=== PATIENT | female | born 1960 | race Caucasian/White ===

== ENCOUNTER 2016-06-03 18:44 | Emergency (ER) | payer MEDICARE, MEDICAID | END 2016-06-03 19:05 | disposition left against medical advice (07) | LOC: UCEAST 18:44 | DX: Z53.21 Procedure and treatment not carried out due to patient leaving prior to being seen by health care provider (principal); R09.89 Other specified symptoms and signs involving the circulatory and respiratory systems ==

== ENCOUNTER 2016-06-12 09:35 | Emergency (ER) | payer MEDICARE, MEDICAID ==
[2016-06-12 10:10] LABS: Hematocrit 49 % (35-47); Hemoglobin 16.6 g/dl (12.0-16.0); Mean Corpuscular HGB Conc 34 g/dl (31-36); Mean Corpuscular Hemoglobin 33 pg (27-31); Mean Corpuscular Volume 97 fL (80-97); Mean Platelet Volume 7 um3 (7.4-10.4); Red Blood Count 5.09 10^6/ul (4.0-5.4); Red Cell Distribution Width 13 % (10.5-15); White Blood Count 6.3 10^3/ul (3.5-10.8)
[2016-06-12 10:12] LABS: Urine Bilirubin Negative (Negative); Urine Glucose Negative (Negative); Urine Nitrite Negative (Negative)
--- NOTE | 2016-06-12 10:24 | RAD ---
INDICATION: Cough and sepsis. COMPARISON: Comparison is made with a prior study from November 30, 2015. TECHNIQUE: A portable view of the chest was obtained. FINDINGS: Cardiac and mediastinal contours appear to be within normal limits. The lungs are clear. No pleural effusion is seen. IMPRESSION: NO EVIDENCE FOR ACUTE DISEASE.
[2016-06-12 10:36] LABS: Albumin 3.7 g/dL (3.2-5.2); BUN/Creatinine Ratio 10.9 (8-20); Calcium 9.2 mg/dL (8.6-10.3); EGFR African American 81.2 (>60); EGFR Non-African American 63.1 (>60); Globulin 3.6 g/dL (2-4); Potassium 4.4 mmol/L (3.5-5.0); Total Bilirubin 0.5 mg/dL (0.2-1.0); Total Protein 7.3 g/dL (6.4-8.9)
[2016-06-12 11:02] LABS: Troponin I 0.01 ng/mL (<0.04)
[2016-06-12] MEDS ORDERED: NS 0.9% 1000 ML* 1,000 ML IV ONE (11:17)
[2016-06-12 12:14] LABS: C Reactive Protein 1.44 mg/L (< 5.00)
[2016-06-12 13:02] VITALS: BP 123/69
--- NOTE | 2016-06-12 14:33 | ED ---
Brad Ugadle Matthew, scribed for Bob Jaeger MD on 06/12/16 at 1013 . Complex/Multi-Sys Presentation - HPI Summary HPI Summary: A 55 y/o female presents to the ED after the patient's aid stated she was more difficulty to arouse than normal this morning. She has also been twitching more than baseline this morning. She recently finished a course of Abx yesterday, which she started on 06/05/15 for bronchitis. Per the aid, the patient had a subjective fever yesterday and her productive cough has worsened. PMHx: Dementia The patient is non-verbal. - History Of Current Complaint Chief Complaint: EDGeneral Time Seen by Provider: 06/12/16 09:43 Hx Obtained From: Family/Bottom Man - AID Hx From Patient Unobtainable Due To: Other - Non-Verbal Onset/Duration: Lasting Hours, Still Present Timing: Constant Severity Currently: Moderate Severity Initially: Moderate Location: Negative Associated Signs And Symptoms: Positive: Cough, Fever - subjective, Other - Increased Drowsiness and Twitching - Allergies/Home Medications Allergies/Adverse Reactions: Allergies Allergy/AdvReac Type Severity Reaction Status Date / Time No Known Allergies Allergy Verified 06/12/16 09:57 PMH/Surg Hx/FS Hx/Imm Hx Endocrine/Hematology History: Reports: Hx Thyroid Disease - hypo Neurological History: Reports: Other Neuro Impairments/Disorders - Down's Syndrome - Cancer History Hx Chemotherapy: No Hx Radiation Therapy: No - Immunization History Date of Tetanus Vaccine: 03/07/12 Date of Influenza Vaccine: 02/26/15 Infectious Disease History: No Infectious Disease History: Denies: Hx Clostridium Difficile, Hx Hepatitis, Hx Human Immunodeficiency Virus (HIV), Hx of Known/Suspected MRSA, Hx Shingles, Hx Tuberculosis, Hx Known/ Suspected VRE, Hx Known/Suspected VRSA, History Other Infectious Disease, Traveled Outside the [place] in Last 30 Days - Family History Known Family History: Negative: Cardiac Disease, Diabetes - Social History Alcohol Use: None Substance Use Type: Reports: None Smoking Status (MU): Never Smoked Tobacco Have You Smoked in the Last Year: No Review of Systems - ROS Summary Review of Systems Summary: A complete ROS is unable to be obtained, because the patient has dementia and is non-verbal. Positive: Fever - subjective Positive: Cough - productive Neurological: Other - Increased Drowsiness and Twitching All Other Systems Reviewed And Are Negative: No Physical Exam Triage Information Reviewed: Yes Vital Signs On Initial Exam: Initial Vitals Temp Pulse Resp BP Pulse Ox 97.7 F 73 16 121/72 98 06/12/16 09:37 06/12/16 09:37 06/12/16 09:37 06/12/16 09:37 06/12/16 09:37 Vital Signs Reviewed: Yes Appearance: Positive: Well-Appearing, Well-Nourished Skin: Positive: Warm, Skin Color Reflects Adequate Perfusion, Dry Head/Face: Positive: Normal Head/Face Inspection ENT: Positive: Other - Dry Mucous Membranes Neck: Positive: Supple, Nontender Respiratory/Lung Sounds: Positive: Breath Sounds Present, Other - Course upper airway sounds Cardiovascular: Positive: RRR Abdomen Description: Positive: Nontender, Soft Bowel Sounds: Positive: Present Neurological: Positive: Other - intermittent disorganized twitching Diagnostics - Vital Signs Vital Signs Temp Pulse Resp BP Pulse Ox 06/12/16 09:37 97.7 F 73 16 121/72 98 - Laboratory Lab Results: Lab Results 06/12/16 06/12/16 06/12/16 Range/Units 09:50 09:50 09:50 WBC 6.3 (3.5-10.8) 10^3/ul RBC 5.09 (4.0-5.4) 10^6/ul Hgb 16.6 H (12.0-16.0) g/dl Hct 49 H (35-47) % MCV 97 (80-97) fL MCH 33 H (27-31) pg MCHC 34 (31-36) g/dl RDW 13 (10.5-15) % Plt Count 355 (150-450) 10^3/ul MPV 7 L (7.4-10.4) um3 Neut % (Auto) 55.1 (38-83) % Lymph % (Auto) 34.4 (25-47) % Roosevelt % (Auto) 7.3 (1-9) % Eos % (Auto) 0.8 (0-6) % Baso % (Auto) 2.4 H (0-2) % Absolute Neuts (auto) 3.4 (1.5-7.7) 10^3/ul Absolute Lymphs (auto) 2.2 (1.0-4.8) 10^3/ul Absolute Monos (auto) 0.5 (0-0.8) 10^3/ul Absolute Eos (auto) 0.1 (0-0.6) 10^3/ul Absolute Basos (auto) 0.2 (0-0.2) 10^3/ul Absolute Nucleated RBC 0.01 10^3/ul Nucleated RBC % 0.1 INR (Anticoag Therapy) 0.86 L (0.89-1.11) APTT 28.8 (26.0-36.3) seconds Sodium (133-145) mmol/L Potassium (3.5-5.0) mmol/L Chloride (101-111) mmol/L Carbon Dioxide (22-32) mmol/L Anion Gap (2-11) mmol/L BUN (6-24) mg/dL Creatinine (0.51-0.95) mg/dL Est GFR ( Amer) (>60) Est GFR (Non-Af Amer) (>60) BUN/Creatinine Ratio (8-20) Glucose (70-100) mg/dL Lactic Acid (0.5-2.0) mmol/L Calcium (8.6-10.3) mg/dL Total Bilirubin (0.2-1.0) mg/dL AST (13-39) U/L ALT (7-52) U/L Alkaline Phosphatase (34-104) U/L Troponin I (<0.04) ng/mL C-Reactive Protein (< 5.00) mg/L Total Protein (6.4-8.9) g/dL Albumin (3.2-5.2) g/dL Globulin (2-4) g/dL Albumin/Globulin Ratio (1-3) Urine Color Yellow Urine Appearance Clear Urine pH 7.0 (5-9) Ur Specific [place] 1.009 L (1.010-1.030) Urine Protein Negative (Negative) Urine Ketones Negative (Negative) Urine Blood Negative (Negative) Urine Nitrate Negative (Negative) Urine Bilirubin Negative (Negative) Urine Urobilinogen Negative (Negative) Ur Leukocyte Esterase Negative (Negative) Urine Glucose Negative (Negative) 06/12/16 06/12/16 Range/Units 09:50 09:50 WBC (3.5-10.8) 10^3/ul RBC (4.0-5.4) 10^6/ul Hgb (12.0-16.0) g/dl Hct (35-47) % MCV (80-97) fL MCH (27-31) pg MCHC (31-36) g/dl RDW (10.5-15) % Plt Count (150-450) 10^3/ul MPV (7.4-10.4) um3 Neut % (Auto) (38-83) % Lymph % (Auto) (25-47) % Roosevelt % (Auto) (1-9) % Eos % (Auto) (0-6) % Baso % (Auto) (0-2) % Absolute Neuts (auto) (1.5-7.7) 10^3/ul Absolute Lymphs (auto) (1.0-4.8) 10^3/ul Absolute Monos (auto) (0-0.8) 10^3/ul Absolute Eos (auto) (0-0.6) 10^3/ul Absolute Basos (auto) (0-0.2) 10^3/ul Absolute Nucleated RBC 10^3/ul Nucleated RBC % INR (Anticoag Therapy) (0.89-1.11) APTT (26.0-36.3) seconds Sodium 135 (133-145) mmol/L Potassium 4.4 (3.5-5.0) mmol/L Chloride 99 L (101-111) mmol/L Carbon Dioxide 29 (22-32) mmol/L Anion Gap 7 (2-11) mmol/L BUN 10 (6-24) mg/dL Creatinine 0.92 (0.51-0.95) mg/dL Est GFR ( Amer) 81.2 (>60) Est GFR (Non-Af Amer) 63.1 (>60) BUN/Creatinine Ratio 10.9 (8-20) Glucose 108 H (70-100) mg/dL Lactic Acid 1.3 (0.5-2.0) mmol/L Calcium 9.2 (8.6-10.3) mg/dL Total Bilirubin 0.50 (0.2-1.0) mg/dL AST 23 (13-39) U/L ALT 19 (7-52) U/L Alkaline Phosphatase 123 H (34-104) U/L Troponin I 0.01 (<0.04) ng/mL C-Reactive Protein 1.44 (< 5.00) mg/L Total Protein 7.3 (6.4-8.9) g/dL Albumin 3.7 (3.2-5.2) g/dL Globulin 3.6 (2-4) g/dL Albumin/Globulin Ratio 1.0 (1-3) Urine Color Urine Appearance Urine pH (5-9) Ur Specific [place] (1.010-1.030) Urine Protein (Negative) Urine Ketones (Negative) Urine Blood (Negative) Urine Nitrate (Negative) Urine Bilirubin (Negative) Urine Urobilinogen (Negative) Ur Leukocyte Esterase (Negative) Urine Glucose (Negative) Result Diagrams: 06/12/16 09:50 06/12/16 09:50 Lab Statement: Any lab studies that have been ordered have been reviewed, and results considered in the medical decision making process. - Radiology CXR Xray Interpretation: No Acute Changes - IMPRESSION: NO EVIDENCE FOR ACUTE DISEASE. Radiology Interpretation Completed By: Radiologist Complex Multi-Symp Course/Dx Assessment/Plan: A 55 y/o female presents to the ED after the patient's aid stated she was more difficulty to arouse than normal this morning. She has also been twitching more than baseline this morning. She recently finished a course of Abx yesterday, which she started on 06/05/15 for bronchitis. Per the aid, the patient had a subjective fever yesterday and her productive cough has worsened. Labs were reviewed. CXR shows no evidence for acute disease. Her twitching improved with IV fluids and I think that she just got behind in her fluids from being sick the last several days. The patient will be discharged home and follow -up with her PCP. - Diagnoses Provider Diagnoses: Dehydration Discharge - Discharge Plan Condition: Stable Disposition: HOME Patient Education Materials: Dehydration (ED) Referrals: Richard Sharif MD [Primary Care Provider] - 2 Days Additional Instructions: Please follow-up with your primary care physician in two days. The documentation as recorded by the Brad morel Matthew accurately reflects the service I personally performed and the decisions made by me, Bob Jaeger MD.
== END 2016-06-12 13:00 | disposition home or self-care (01) ==
LOC: ED 09:35
DX: R05 Cough (principal); R50.9 Fever, unspecified; E86.0 Dehydration
CPT/HCPCS: 36415; 71010; 80053; 81003; 83605; 84484; 85025; 85610; 85730; 86140; 87040; 96360; 99283

== ENCOUNTER → 2016-11-03 10:26 | Emergency (ER) | payer MEDICARE, MEDICAID ==
[~2016-11-03 10:26] MED LIST: levETIRAcetam IV* 500 MG/5 ML VIAL ONE; levETIRAcetam TAB* 500 MG ONE
[2016-11-03 11:32] LABS: Hematocrit 47 % (35-47); Hemoglobin 15.8 g/dl (12.0-16.0); Mean Corpuscular HGB Conc 34 g/dl (31-36); Mean Corpuscular Hemoglobin 33 pg (27-31); Mean Corpuscular Volume 96 fL (80-97); Mean Platelet Volume 7 um3 (7.4-10.4); Red Blood Count 4.85 10^6/ul (4.0-5.4); Red Cell Distribution Width 14 % (10.5-15); White Blood Count 6.7 10^3/ul (3.5-10.8)
--- NOTE | 2016-11-03 12:04 | RAD ---
Indication: Seizures. 2 views of the chest are reviewed. No mediastinal shift is noted. Heart is of normal size and configuration. Lung laird demonstrate no pleural fluid, pneumonia or pneumothorax. No changes noted since previous exam of June 12, 2016. IMPRESSION: NO ACTIVE CARDIOPULMONARY DISEASE IS NOTED.
--- NOTE | 2016-11-03 12:17 | RAD ---
Indication: Left-sided weakness CT of the brain was performed without IV contrast and compared to previous exam dated March 04, 2015. Ventricular structures are midline. No midline shift is noted. Central and cortical atrophy is noted. The ventricles appear enlarged. No intracranial mass or hemorrhage is. Mastoid air cells and paranasal sinuses are grossly unremarkable. IMPRESSION: Ventriculomegaly. No intracranial mass or hemorrhage is noted.
[2016-11-03 12:20] LABS: Albumin 3.6 g/dL (3.2-5.2); BUN/Creatinine Ratio 15.8 (8-20); Calcium 8.9 mg/dL (8.6-10.3); EGFR African American 101.2 (>60); EGFR Non-African American 78.7 (>60); Globulin 2.8 g/dL (2-4); Magnesium 2.6 mg/dL (1.9-2.7); Total Bilirubin 0.6 mg/dL (0.2-1.0); Total Protein 6.4 g/dL (6.4-8.9)
[2016-11-03 17:49] VITALS: BP 140/90
--- NOTE | 2016-11-03 18:26 | ED ---
Dwayne Ugalde Aidan, scribed for Ruperto Ponce MD on 11/03/16 at 1645 . Progress - Progress Note Progress Note: BRAIN CT IMPRESSION: Ventriculomegaly. No intracranial mass or hemorrhage is noted. CHEST X-RAY IMPRESSION: NO ACTIVE CARDIOPULMONARY DISEASE. EKG 1207: NSR no STEMI. Course/Dx - Diagnoses Provider Diagnoses: Seizure The documentation as recorded by the Dwayne morel Aidan accurately reflects the service I personally performed and the decisions made by Kris graham Walter, MD.
--- NOTE | 2016-11-03 18:27 | ED ---
Dwayne Ugalde Aidan, scribed for Ruperto Ponce MD on 11/03/16 at 1235 . 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 The episode lasted roughly 7 minutes, during which the patient was jerking and unresponsive. This morning, she had been leaning more to the left than baseline. Pt does not ambulate and has baseline resting tremors. Hx of dementia and down syndrome. She is nonverbal. - History of Current Complaint Chief Complaint: EDSeizure Stated Complaint: SEIZURES Time Seen by Provider: 11/03/16 10:54 Hx Obtained From: Family/Liner Inserter, EMS Hx From Patient Unobtainable Due To: Dementia Onset/Duration: Sudden Onset, Started minutes ago, Resolved Timing: Intermittent Episodes Lasting: Onset Severity: Moderate Current Severity: None Seizure Severity: Moderate Number of Seizures: 1 - see HPI Neurological Deficit Location: Generalized Pain Intensity: 0 Pain Scale Used: 0-10 Numeric Character: Other: - seizure with unresponsiveness and diffuse body jerks Syncope Timin minutes 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 This morning, she had been leaning more to the left than baseline. - Allergy/Home Medications Allergies/Adverse Reactions: Allergies Allergy/AdvReac Type Severity Reaction Status Date / Time No Known Allergies Allergy Verified 06/12/16 09:57 PMH/Surg Hx/FS Hx/Imm Hx Endocrine/Hematology History: Reports: Hx Thyroid Disease - hypo Neurological History: Reports: Other Neuro Impairments/Disorders - Down's Syndrome - Cancer History Hx Chemotherapy: No Hx Radiation Therapy: No - Immunization History Date of Tetanus Vaccine: 03/07/12 Date of Influenza Vaccine: 02/26/15 Infectious Disease History: No Infectious Disease History: Denies: Hx Clostridium Difficile, Hx Hepatitis, Hx Human Immunodeficiency Virus (HIV), Hx of Known/Suspected MRSA, Hx Shingles, Hx Tuberculosis, Hx Known/ Suspected VRE, Hx Known/Suspected VRSA, History Other Infectious Disease, Traveled Outside the [place] in Last 30 Days - Family History Known Family History: Negative: Cardiac Disease, Diabetes - Social History Occupation: Disabled Lives: Assisted Living Alcohol Use: None Substance Use Type: Reports: None Smoking Status (MU): Never Smoked Tobacco Have You Smoked in the Last Year: No Review of Systems Constitutional: Negative Eyes: Negative ENT: Negative Cardiovascular: Negative Respiratory: Negative Gastrointestinal: Negative Genitourinary: Negative Musculoskeletal: Negative Skin: Negative Neurological: Other - seizure, leaning more to the left than baseline Negative: Headache, Weakness, Paresthesia, Numbness, Syncope, Slurred Speech Psychological: Normal All Other Systems Reviewed And Are Negative: Yes Physical Exam - Summary Physical Exam Summary: VITAL SIGNS: Reviewed. GENERAL: Patient is a nourished, elderly FEMALE who is lying comfortable in the stretcher. Patient is not in any acute respiratory distress. She is nonverbal and unable to give any history. HEAD AND FACE: No signs of trauma. No ecchymosis, hematomas or skull depressions. No sinus tenderness. EYES: PERRLA, EOMI x 2, No injected conjunctiva, no nystagmus. EARS: Hearing grossly intact. Ear canals and tympanic membranes are within normal limits. MOUTH: Oropharynx within normal limits. She does have a dry mouth. NECK: Supple, trachea is midline, no adenopathy, no JVD, no carotid bruit, no c- spine tenderness, neck with full ROM. CHEST: Symmetric, no tenderness at palpation LUNGS: Clear to auscultation bilaterally. No wheezing or crackles. CVS: Regular rate and rhythm, S1 and S2 present, no murmurs or gallops appreciated. ABDOMEN: Soft, non-tender. No signs of distention. No rebound no guarding, and no masses palpated. Bowel sounds are normal. EXTREMITIES: FROM in all major joints, no edema, no cyanosis or clubbing. She does have resting tremors. NEURO: Alert and oriented x 3. No acute neurological deficits. Speech is normal and follows commands. SKIN: Dry and warm Triage Information Reviewed: Yes Vital Signs On Initial Exam: Initial Vitals Temp Pulse Resp BP Pulse Ox 97.3 F 60 17 135/104 98 11/03/16 10:39 11/03/16 10:39 11/03/16 10:39 11/03/16 10:39 11/03/16 10:39 Vital Signs Reviewed: Yes - [place] Coma Scale Coma Scale Total: 10 Diagnostics - Vital Signs Vital Signs Temp Pulse Resp BP Pulse Ox 11/03/16 10:48 97.3 F 60 16 136/102 98 11/03/16 10:39 97.3 F 60 17 135/104 98 - Laboratory Lab Results: Lab Results 11/03/16 11/03/16 11/03/16 Range/Units 11:27 11:27 11:27 WBC 6.7 (3.5-10.8) 10^3/ul RBC 4.85 (4.0-5.4) 10^6/ul Hgb 15.8 (12.0-16.0) g/dl Hct 47 (35-47) % MCV 96 (80-97) fL MCH 33 H (27-31) pg MCHC 34 (31-36) g/dl RDW 14 (10.5-15) % Plt Count 275 (150-450) 10^3/ul MPV 7 L (7.4-10.4) um3 Neut % (Auto) 74.1 (38-83) % Lymph % (Auto) 18.3 L (25-47) % Oliver % (Auto) 6.5 (1-9) % Eos % (Auto) 0.7 (0-6) % Baso % (Auto) 0.4 (0-2) % Absolute Neuts (auto) 4.9 (1.5-7.7) 10^3/ul Absolute Lymphs (auto) 1.2 (1.0-4.8) 10^3/ul Absolute Monos (auto) 0.4 (0-0.8) 10^3/ul Absolute Eos (auto) 0 (0-0.6) 10^3/ul Absolute Basos (auto) 0 (0-0.2) 10^3/ul Absolute Nucleated RBC 0 10^3/ul Nucleated RBC % 0 INR (Anticoag Therapy) 0.85 L (0.89-1.11) Lactic Acid 1.2 (0.5-2.0) mmol/L Result Diagrams: 11/03/16 11:27 11/03/16 11:27 Lab Statement: Any lab studies that have been ordered have been reviewed, and results considered in the medical decision making process. 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 The episode lasted roughly 7 minutes , during which the patient was jerking and unresponsive. This morning, she had been leaning more to the left than baseline. Pt does not ambulate and has baseline resting tremors. Hx of dementia and down syndrome. She is nonverbal. In the ED course an IV access was obtained. Patient was placed in a building maintenance supervisor. Patient was started with IV fluids. Labs within normal limits except for NA 131, and Glucose 113. EKG shows a NSR at w/o ST elevations. CXR impression: No acute pathology. Head CT impression: No acute intracranial pathology. I discussed the case with Dr. Calles (Neurology) and he recommended to order an EEG and give the patient 500 mg of KEppra. After the EEG he recommended an additional dose of Keppra and discharge the patient home with a F/U at is office in 3-4 weeks. In the ED course she had no additional Seizures. She is back to her base line and she is hemodynamically stable. Patient will get a prescription for Keppra 500 mg BID. I discussed the disposition and plan with caregiver. - Differential Dx Differential Diagnoses Neuro: Positive: Cerebrovascular Accident, Seizure Disorder, Transient Ischemic Attack - Diagnoses Provider Diagnoses: Seizure - Physician Notifications Discussed Care Of Patient With: Mihir Calles Time Discussed With Above Provider: 13:37 - Dr. Calles suggested kepra and an eeg. Discharge - Discharge Plan Condition: Stable Disposition: HOME Prescriptions: levETIRAcetam TAB* [Keppra TAB*] 500 mg PO BID #60 tab Patient Education Materials: Nonepileptic Seizures (ED) Referrals: Richard Sharif MD [Primary Care Provider] - The documentation as recorded by the Dwayne morel Aidan accurately reflects the service I personally performed and the decisions made by me, Ruperto Ponce MD.
--- NOTE | 2016-11-03 18:29 | CONS ---
CONSULTATION REPORT: DATE OF CONSULT: 11/03/16 - EMERGENCY DEPT PATIENT OF: Dr. Ponce. HISTORY OF PRESENT ILLNESS: This is a 55-year-old woman with Down syndrome and superimposed dementia who comes in with a witnessed seizure earlier today with a postictal period afterwards, but now is back to baseline. Of note, there was an episode in May where she was more difficult to arouse that morning and had been twitching more than her baseline that same morning and had recently been treated for bronchitis. The patient is nonverbal and has a history of Down syndrome, hypothyroidism, and no other medical history. PAST SURGICAL HISTORY: There are no known surgeries documented. MEDICATIONS: None listed per ER staff who has seen a copy of her medications which are not currently available to me. There are some notes in the chart about Synthroid 25 mcg a day and she does have a history of hypothyroidism as well as trazodone but the dose not noted. ALLERGIES: She has no known allergies. FAMILY HISTORY: Negative as far as I know for diabetes and cardiac disease. SOCIAL HISTORY: Does not smoke or drink. REVIEW OF SYSTEMS: There has been no recent illnesses like fevers, infectious disease, or blows to the head. Review of systems is limited, but from what I can gather from staff from where she lives, there are no recent illnesses for her. PHYSICAL EXAM: Temperature 97.3, pulse 66, respirations 23, blood pressure 101/ 73. She appeared alert, but nonverbal and did not follow commands. Her degree of encephalopathy is apparently back to her baseline. She moved extremities with power, all 4 extremities, but did not follow any directions. Pupils are equal, round, reactive to light. Face is symmetric. Tongue is midline. She appeared to have full extraocular movements. Strength was at least 5-/5, but she is not directly cooperative with exam. Reflexes were 1 and equal. Toes were equivocal to downgoing. Chest: Clear. Cardiovascular: Regular rate and rhythm. Abdomen is soft with positive bowel sounds. DIAGNOSTIC STUDIES/LAB DATA: Her EEG showed diffuse slowing and multifocal discharges but no subclinical seizures. Her CT scan showed diffuse atrophy, irregular ventricle wall with ventriculomegaly. She had a CT scan from February 2015 which showed a comparable degree of cerebral atrophy. Laboratory studies included normal white count, hematocrit, and platelet count. INR was 0.85. Chemistries had a sodium of 131, otherwise normal including calcium, magnesium, liver function tests. IMPRESSION: Roxanna has Down syndrome and dementia most likely secondary to this. She is at risk for seizures from her underlying neurological conditions and appears to have had a seizure today. I strongly suspect that she had a seizure back in May when she was lethargic or difficult to arouse and had increased twitching back then. We are loading her with Keppra and then, she will be maintained. Her half-way has other patients with seizures and she will be followed there. She will need a level in several weeks and I will be seeing her in followup of that. I discussed this with Dr. Ponce in detail and discussed the side effects of Keppra with him. Thank you for sharing her case. [id number]/[facility] #: [id number] EUGENIA
--- NOTE | 2016-11-04 03:08 | EEG ---
ELECTROENCEPHALOGRAPHY: DATE OF STUDY/DICTATION: 11/03/16 - EMERGENCY DEPT PATIENT OF: Dr. Ponce. CLINICAL PROBLEM: This is a 55-year-old woman with mental retardation and dementia who has had a witnessed seizure today. MEDICATIONS: None listed. REPORT: With the patient awake, background cerebral activity consists of admixed delta, alpha, and theta range frequencies, muscle movement artifacts are noted. Throughout this tracing, there is multifocal sharp waves noted. They do not occur in runs and no subclinical seizures are present. CLINICAL IMPRESSION: This EEG is abnormal on two counts - one is there is diffuse slowing of background, the other is this multifocal sharp waves. These findings are consistent with diffuse encephalopathy and a tendency towards multifocal or focal seizure disorder. [id number]/[facility] #: [id number] [facility]
== END | disposition home or self-care (01) ==
LOC: ED 10:26
DX: R56.9 Unspecified convulsions (principal)
CPT/HCPCS: 36415; 70450; 71020; 80053; 83605; 83735; 85025; 85610; 93005; 95816; 99284; A9270-GY

== ENCOUNTER 2017-09-25 10:23 | Emergency (ER) | payer MEDICARE, MEDICAID ==
[2017-09-25 10:51] VITALS: BP 101/81
--- NOTE | 2017-09-25 12:07 | UC ---
Skin Complaint HPI - HPI Summary HPI Summary: 56 yo female with Downs syndrome and dementia who presents with a rash. Rash was first noted this am over both legs. No fever. No changes in behavior. No recent illness. Rash does not appear to be bothersome. - History of Current Complaint Chief Complaint: UCRash Stated Complaint: RASH Pain Intensity: 0 - Allergy/Home Medications Allergies/Adverse Reactions: Allergies Allergy/AdvReac Type Severity Reaction Status Date / Time No Known Allergies Allergy Verified 09/25/17 10:51 Home Medications: Home Medications ARIPiprazole [Abilify] 1 mg PO BID 09/25/17 [History Confirmed 09/25/17] Acetaminophen 325 mg PO SEE INSTRUCTIONS 09/25/17 [History Confirmed 09/25/17] Docusate Sodium [Colace] 100 mg PO BID 09/25/17 [History Confirmed 09/25/17] Levothyroxine TAB* [Synthroid 25 MCG TAB*] 25 mcg PO DAILY 09/25/17 [History Confirmed 09/25/17] Maltodextrin/Xanthan Gum [Thicken Up Clear Powder] 1 pow PO DAILY WITH MEAL 11/07 [History Confirmed 09/25/17] Polyethylene Glycol 3350* [Miralax*] 17 gm PO SEE INSTRUCTIONS 09/25/17 [ History Confirmed 09/25/17] Ranitidine TAB (NF) [Zantac TAB (NF)] 150 mg PO BID 09/25/17 [History Confirmed 09/25/17] Vits A and D/White Pet/Lanolin [Vitamin A and D Ointment Pckt] 5 gm TP SEE INSTRUCTIONS 09/25/17 [History Confirmed 09/25/17] guaiFENesin [Guaifenesin] 200 mg PO SEE INSTRUCTIONS 09/25/17 [History Confirmed 09/25/17] levETIRAcetam [Levetiracetam] 500 mg PO BID 09/25/17 [History Confirmed 09/25/17 ] Review of Systems Constitutional: Negative Skin: Rash Eyes: Negative ENT: Negative Respiratory: Negative Cardiovascular: Negative Gastrointestinal: Negative Genitourinary: Negative Motor: Negative Neurovascular: Negative Musculoskeletal: Negative Neurological: Negative Psychological: Negative Is Patient Immunocompromised?: No All Other Systems Reviewed And Are Negative: Yes PMH/Surg Hx/FS Hx/Imm Hx Previously Healthy: No - Down's syndrome, dementia - Surgical History Surgical History: None - Family History Known Family History: Negative: Cardiac Disease, Diabetes - Social History Alcohol Use: None Substance Use Type: None Smoking Status (MU): Never Smoked Tobacco Have You Smoked in the Last Year: No Physical Exam Triage Information Reviewed: Yes Appearance: Well-Appearing Vital Signs: Initial Vital Signs Temp 98.9 F 09/25/17 10:47 Pulse 78 09/25/17 10:47 Resp 18 09/25/17 10:47 BP 101/81 09/25/17 10:47 Pulse Ox 100 09/25/17 10:47 Vital Signs Reviewed: Yes ENT: Positive: Normal ENT inspection Neck: Positive: Supple Respiratory: Positive: Lungs clear Cardiovascular: Positive: RRR, No Murmur Abdomen Description: Positive: Nontender Neurological: Positive: Alert, Other: - nonverbal Skin: Positive: Other - petechial rash covering both lower extremities Course/Dx - Course Course Of Treatment: 56 yo female with Down's syndrome with dementia who is nonverbal with a new petechial rash. No vital sign changes. Recommend she proceed to the ER for further evaluation. - Differential Diagnoses - Skin Complaint Differential Diagnoses: Cellulitis, Drug Rash, Viral Exanthem - Diagnoses Provider Diagnoses: 1. Petechial rash Discharge - Sign-Out/Discharge Documenting (check all that apply): Discharge/Admit/Transfer - Discharge Plan Condition: Stable Disposition: HOME Patient Education Materials: Acute Rash (ED) Referrals: Richard Sharif MD [Primary Care Provider] - Additional Instructions: Instructions: PLEASE PROCEED TO THE EMERGENCY DEPARTMENT FOR FURTHER EVALUATION - Billing Disposition and Condition Condition: STABLE Disposition: HOME
== END 2017-09-25 12:06 | disposition home or self-care (01) ==
LOC: UCEAST 10:23
DX: R23.3 Spontaneous ecchymoses (principal); Q90.9 Down syndrome, unspecified; F03.90 Unspecified dementia, unspecified severity, without behavioral disturbance, psychotic disturbance, mood disturbance, and anxiety
CPT/HCPCS: 99212; G0463

== ENCOUNTER 2017-09-25 13:07 | Emergency (ER) | payer MEDICARE, MEDICAID ==
--- NOTE | 2017-09-25 14:35 | RAD ---
INDICATION: Petechiae. COMPARISON: Comparison is made with a prior chest x-ray study from November 03, 2016. TECHNIQUE: A portable view of the chest was obtained. FINDINGS: Cardiac and mediastinal contours appear to be within normal limits. The lungs are underinflated. There is a small infiltrate at the medial right lung base. No pleural effusion is seen. IMPRESSION: LOW LUNG VOLUMES, SMALL RIGHT BASILAR INFILTRATE.
[2017-09-25 14:38] LABS: ABS Basophils 0 10^3/ul (0-0.2); ABS Eosinophils 0 10^3/ul (0-0.6); ABS Lymphocytes 1.9 10^3/ul (1.0-4.8); ABS Monocytes 0.4 10^3/ul (0-0.8); ABS Neutrophils 4.6 10^3/ul (1.5-7.7); ABS Nucleated RBC 0 10^3/ul; Eosinophil % 0.5 % (0-6); Hematocrit 43 % (35-47); Hemoglobin 14.6 g/dl (12.0-16.0); Lymphocyte % 26.7 % (25-47); Mean Corpuscular HGB Conc 34 g/dl (31-36); Mean Corpuscular Hemoglobin 33 pg (27-31); Mean Corpuscular Volume 98 fL (80-97); Mean Platelet Volume 6.5 um3 (7.4-10.4); Nucleated Red Blood Cells % 0; Platelet Count 261 10^3/ul (150-450); Red Cell Distribution Width 14 % (10.5-15)
[2017-09-25 14:48] LABS: INR 0.84 (0.77-1.02)
[2017-09-25 14:55] LABS: EGFR Non-African American 68.9 (>60)
[2017-09-25] MEDS ORDERED: Azithromycin TAB* 250 MG PO ONE (17:19)
--- NOTE | 2017-09-25 17:26 | ED ---
Wilfredo Ugalde Tiffany, scribed for Seamus Thompson MD on 09/25/17 at 1352 . Skin Complaint - HPI Summary HPI Summary: The patient is a 56 year old F [facility] complains of bilateral leg rash since 08:30 today. Symptoms aggravated by nothing. Symptoms alleviated by nothing. Patient has Downs syndrome and dementia. Per caregiver, patient has normal behavior, soft abdomen. Caregiver denies recent illness, fever. - History of Current Complaint Chief Complaint: EDRashSkinAbscess Time Seen by Provider: 09/25/17 13:36 Stated Complaint: RASH/SKIN IRRITATION Hx Obtained From: Family/Paper Colorer - Caregiver Hx From Patient Unobtainable Due To: Dementia - Down's syndrome Onset/Duration: Started Days Ago - 8:30 today, Still Present Timing: Constant Skin Location: Leg - Bilateral Aggravating Symptom(s): Nothing Alleviating Symptom(s): Nothing Associated Signs & Symptoms: Negative - recent illness, fever - Allergy/Home Medications Allergies/Adverse Reactions: Allergies Allergy/AdvReac Type Severity Reaction Status Date / Time No Known Allergies Allergy Verified 09/25/17 10:51 Home Medications: Home Medications ARIPiprazole TAB* [Abilify 2 MG TAB*] 1 mg PO DAILY 09/25/17 [History Confirmed 09/25/17] Acetaminophen TAB* [Tylenol TAB*] 650 mg PO Q4H PRN 09/25/17 [History Confirmed 09/25/17] Docusate CAP* [Colace Cap*] 100 mg PO BID 09/25/17 [History Confirmed 09/25/17] Levothyroxine TAB* [Synthroid TAB*] 25 mcg PO DAILY 09/25/17 [History Confirmed 09/25/17] Polyethylene Glycol 3350* [Miralax*] 17 gm PO DAILY 09/25/17 [History Confirmed 09/25/17] Ranitidine TAB (NF) [Zantac TAB (NF)] 150 mg PO BID 09/25/17 [History Confirmed 09/25/17] guaiFENesin LIQ* [Robitussin*] 2 teasp PO Q4H PRN 09/25/17 [History Confirmed ] levETIRAcetam TAB* [Keppra TAB*] 500 mg PO BID 09/25/17 [History Confirmed 09/25] PMH/Surg Hx/FS Hx/Imm Hx Previously Healthy: No Endocrine/Hematology History: Reports: Hx Thyroid Disease - hypo Neurological History: Reports: Hx Dementia, Other Neuro Impairments/Disorders - Down's Syndrome - Cancer History Hx Chemotherapy: No Hx Radiation Therapy: No - Surgical History Surgery Procedure, Year, and Place: None - Immunization History Date of Tetanus Vaccine: 03/07/12 Date of Influenza Vaccine: 02/26/15 Infectious Disease History: No Infectious Disease History: Denies: Hx Clostridium Difficile, Hx Hepatitis, Hx Human Immunodeficiency Virus (HIV), Hx of Known/Suspected MRSA, Hx Shingles, Hx Tuberculosis, Hx Known/ Suspected VRE, Hx Known/Suspected VRSA, History Other Infectious Disease, Traveled Outside the [place] in Last 30 Days - Family History Known Family History: Positive: Other - Mother had dementia Negative: Cardiac Disease, Diabetes - Social History Alcohol Use: None Hx Substance Use: No Substance Use Type: Reports: None Hx Tobacco Use: No Smoking Status (MU): Never Smoked Tobacco Have You Smoked in the Last Year: No Review of Systems Constitutional: Negative - Recent illness Positive: Other - Normal behavior. Negative: Fever Positive: Other - Soft abdomen Positive: Rash - BILATERAL LEG All Other Systems Reviewed And Are Negative: Yes Physical Exam - Summary Physical Exam Summary: General: well-appearing, no acute distress. Non-verbal at baseline. Skin: Scattered petechiae on shins of both legs, more prominent on right than left. Petechiae has 2-3 mm area that is discrete, non-confluent. Feet are normal. Head: normal Eyes: EOMI, GENARO ENT: normal Neck: supple, nontender Respiratory: CTA, breath sounds present Cardiovascular: RRR Abdomen: soft, nontender Bowel: present Musculoskeletal: normal, strength/ROM intact Neurological: normal, sensory/motor intact, A&O x3 Psychological: affect/mood appropriate Triage Information Reviewed: Yes Vital Signs On Initial Exam: Initial Vitals Temp Pulse Resp BP Pulse Ox 97.9 F 80 14 101/81 100 09/25/17 13:11 09/25/17 13:11 09/25/17 13:11 09/25/17 13:11 09/25/17 13:11 Vital Signs Reviewed: Yes Diagnostics - Vital Signs Vital Signs Temp Pulse Resp BP Pulse Ox 05/06/18 13:21 78 91 09/25/17 13:11 97.9 F 80 14 101/81 100 - Laboratory Lab Results: Lab Results 09/25/17 09/25/17 09/25/17 Range/Units 14:30 14:30 14:30 WBC 7.0 (3.5-10.8) 10^3/ul RBC 4.40 (4.0-5.4) 10^6/ul Hgb 14.6 (12.0-16.0) g/dl Hct 43 (35-47) % MCV 98 H (80-97) fL MCH 33 H (27-31) pg MCHC 34 (31-36) g/dl RDW 14 (10.5-15) % Plt Count 261 (150-450) 10^3/ul MPV 6.5 L (7.4-10.4) um3 Neut % (Auto) 66.7 (38-83) % Lymph % (Auto) 26.7 (25-47) % [place] % (Auto) 5.9 (0-7) % Eos % (Auto) 0.5 (0-6) % Baso % (Auto) 0.2 (0-2) % Absolute Neuts (auto) 4.6 (1.5-7.7) 10^3/ul Absolute Lymphs (auto) 1.9 (1.0-4.8) 10^3/ul Absolute Monos (auto) 0.4 (0-0.8) 10^3/ul Absolute Eos (auto) 0 (0-0.6) 10^3/ul Absolute Basos (auto) 0 (0-0.2) 10^3/ul Absolute Nucleated RBC 0 10^3/ul Nucleated RBC % 0 INR (Anticoag Therapy) 0.84 (0.77-1.02) APTT 27.2 (26.0-36.3) seconds Sodium 137 L (139-145) mmol/L Potassium 4.2 (3.5-5.0) mmol/L Chloride 103 (101-111) mmol/L Carbon Dioxide 28 (22-32) mmol/L Anion Gap 6 (2-11) mmol/L BUN 19 (6-24) mg/dL Creatinine 0.85 (0.51-0.95) mg/dL Est GFR ( Amer) 88.7 (>60) Est GFR (Non-Af Amer) 68.9 (>60) BUN/Creatinine Ratio 22.4 H (8-20) Glucose 123 H (70-100) mg/dL Lactic Acid (0.5-2.0) mmol/L Calcium 8.9 (8.6-10.3) mg/dL Total Bilirubin 0.30 (0.2-1.0) mg/dL AST 36 (13-39) U/L ALT 29 (7-52) U/L Alkaline Phosphatase 77 (34-104) U/L C-Reactive Protein 2.54 (< 5.00) mg/L Total Protein 6.2 L (6.4-8.9) g/dL Albumin 3.4 (3.2-5.2) g/dL Globulin 2.8 (2-4) g/dL Albumin/Globulin Ratio 1.2 (1-3) /11/07 Range/Units 14:30 WBC (3.5-10.8) 10^3/ul RBC (4.0-5.4) 10^6/ul Hgb (12.0-16.0) g/dl Hct (35-47) % MCV (80-97) fL MCH (27-31) pg MCHC (31-36) g/dl RDW (10.5-15) % Plt Count (150-450) 10^3/ul MPV (7.4-10.4) um3 Neut % (Auto) (38-83) % Lymph % (Auto) (25-47) % [place] % (Auto) (0-7) % Eos % (Auto) (0-6) % Baso % (Auto) (0-2) % Absolute Neuts (auto) (1.5-7.7) 10^3/ul Absolute Lymphs (auto) (1.0-4.8) 10^3/ul Absolute Monos (auto) (0-0.8) 10^3/ul Absolute Eos (auto) (0-0.6) 10^3/ul Absolute Basos (auto) (0-0.2) 10^3/ul Absolute Nucleated RBC 10^3/ul Nucleated RBC % INR (Anticoag Therapy) (0.77-1.02) APTT (26.0-36.3) seconds Sodium (139-145) mmol/L Potassium (3.5-5.0) mmol/L Chloride (101-111) mmol/L Carbon Dioxide (22-32) mmol/L Anion Gap (2-11) mmol/L BUN (6-24) mg/dL Creatinine (0.51-0.95) mg/dL Est GFR ( Amer) (>60) Est GFR (Non-Af Amer) (>60) BUN/Creatinine Ratio (8-20) Glucose (70-100) mg/dL Lactic Acid 1.4 (0.5-2.0) mmol/L Calcium (8.6-10.3) mg/dL Total Bilirubin (0.2-1.0) mg/dL AST (13-39) U/L ALT (7-52) U/L Alkaline Phosphatase (34-104) U/L C-Reactive Protein (< 5.00) mg/L Total Protein (6.4-8.9) g/dL Albumin (3.2-5.2) g/dL Globulin (2-4) g/dL Albumin/Globulin Ratio (1-3) Result Diagrams: 09/25/17 14:30 09/25/17 14:30 Lab Statement: Any lab studies that have been ordered have been reviewed, and results considered in the medical decision making process. - Radiology CXR Radiology Interpretation Completed By: Radiologist - LOW LUNG VOLUMES, SMALL RIGHT BASILAR INFILTRATE. ED physician has reviewed this report. Re-Evaluation - Re-Evaluation First Eval Re-Evaluation Time: 17:19 Change: Unchanged Comment: Patient on results. Agreeable to discharge. Course/Dx - Course Course Of Treatment: Medications reviewed. PATIENT'S RESULTS DISCUSSED WITH HER RN PLASMA CENTER. SHE REPORTS PATIENT HAS NORMAL BEHAVIOR, HAS NOT BEEN ILL. WITH MS MEJIA WELL APPEARING WITH NORMAL VITAL SIGNS AND ESSENTIALLY NORMAL LABS , WILL TREAT WITH ZPAC FOR THE CXR INFILTRATE WITH DIRECTIONS TO F/U WITH PMD TOMORROW AND RETURN TO ED IF SHE BEGINS TO APPEAR ILL OR ANY QUESTIONS OR CONCERNS. - Diagnoses Provider Diagnoses: Petechial rash, Lung infiltrate Discharge - Sign-Out/Discharge Documenting (check all that apply): Discharge/Admit/Transfer - Discharge Plan Condition: Stable Disposition: HOME Prescriptions: Azithromycin TAB* [Zithromax TAB (Z-BOB) 250 mg #6 tabs] 250 mg PO DAILY #4 tab Patient Education Materials: Acute Rash (ED) Referrals: Richard Sharif MD [Primary Care Provider] - Additional Instructions: FOLLOW UP WITH YOUR DOCTOR. CALL TOMORROW FOR A RECHECK. THE AZITHROMYCIN IS BEING STARTED FOR AN INFILTRATE SEEN ON CHEST X-RAY. RETURN TO THE EMERGENCY DEPARTMENT FOR ANY WORSENING OF YOUR CONDITION; FEVER, SHORTNESS OF BREATH, ILL APPEARANCE, ABNORMAL BEHAVIOR OR QUESTIONS OR CONCERNS. - Billing Disposition and Condition Condition: STABLE Disposition: HOME The documentation as recorded by the Wilfredo morel Tiffany accurately reflects the service I personally performed and the decisions made by me, Seamus Thompson MD.
[2017-09-25 17:49] VITALS: BP 111/76
== END 2017-09-25 17:48 | disposition home or self-care (01) ==
LOC: ED 13:07
DX: R91.8 Other nonspecific abnormal finding of lung field (principal); R21 Rash and other nonspecific skin eruption; F03.90 Unspecified dementia, unspecified severity, without behavioral disturbance, psychotic disturbance, mood disturbance, and anxiety; Q90.9 Down syndrome, unspecified; R23.3 Spontaneous ecchymoses
CPT/HCPCS: 36415; 71045; 80053; 80177; 83605; 85025; 85610; 85730; 86140; 99212; 99283; A9270-GY; G0463

== ENCOUNTER 2018-12-31 12:04 | Inpatient (IN) | payer MEDICARE, MEDICAID ==
[2018-12-31] MEDS ORDERED: NS 0.9% 1000 ML** 1,000 ML IV ONE ×2 (12:33→14:49)
--- NOTE | 2018-12-31 12:34 | ED ---
Complex/Multi-Sys Presentation - HPI Summary HPI Summary: Patient is a 58-year-old female who presents emergency department for decreased urination, possible hematuria and difficulty swallowing. Patient has a history of Down syndrome and resides at a care facility. Patient is nonverbal. Staff member present. Patient is typically on a liquid diet and reportedly over the last 2 weeks has been having difficulty swallowing. Staff member states when she feeds. She states liquid will sit in her mouth and she will not swallow. Staff member notes decreased urination and today there was pink blood in her depends. No associated sxs of fever, cough, V/D. Sxs are moderate in severity. No current modifying factors. - History Of Current Complaint Chief Complaint: EDUrogenitalProblems Time Seen by Provider: 12/31/18 12:19 Hx Obtained From: Family/Mat Gauger - Allergies/Home Medications Allergies/Adverse Reactions: Allergies Allergy/AdvReac Type Severity Reaction Status Date / Time No Known Allergies Allergy Verified 12/31/18 12:13 PMH/Surg Hx/FS Hx/Imm Hx Previously Healthy: Yes Endocrine/Hematology History: Reports: Hx Thyroid Disease - hypo Neurological History: Reports: Hx Dementia, Other Neuro Impairments/Disorders - Down's Syndrome - Cancer History Hx Chemotherapy: No Hx Radiation Therapy: No - Surgical History Surgery Procedure, Year, and Place: None - Immunization History Date of Tetanus Vaccine: 03/07/12 Date of Influenza Vaccine: 02/26/15 Infectious Disease History: No Infectious Disease History: Denies: Hx Clostridium Difficile, Hx Hepatitis, Hx Human Immunodeficiency Virus (HIV), Hx of Known/Suspected MRSA, Hx Shingles, Hx Tuberculosis, Hx Known/ Suspected VRE, Hx Known/Suspected VRSA, History Other Infectious Disease, Traveled Outside the [place] in Last 30 Days - Family History Known Family History: Positive: Other - Mother had dementia Negative: Cardiac Disease, Diabetes - Social History Occupation: Disabled Lives: Nursing Home Alcohol Use: None Hx Substance Use: No Substance Use Type: Reports: None Hx Tobacco Use: No Smoking Status (MU): Never Smoked Tobacco Have You Smoked in the Last Year: No Review of Systems Constitutional: Negative Negative: Fever, Chills Eyes: Negative ENT: Negative Cardiovascular: Negative Respiratory: Negative Gastrointestinal: Negative Genitourinary: Other - decreased urine output. Blood in depends Positive: dysuria Musculoskeletal: Negative Skin: Negative Neurological: Negative All Other Systems Reviewed And Are Negative: Yes Physical Exam - Summary Physical Exam Summary: Pt. is a 58 y.o Triage Information Reviewed: Yes Vital Signs On Initial Exam: Initial Vitals Temp Pulse Resp BP Pulse Ox 98.0 F 86 18 97/66 97 12/31/18 12:07 12/31/18 12:07 12/31/18 12:07 12/31/18 12:07 12/31/18 12:07 Vital Signs Reviewed: Yes Appearance: Positive: Well-Appearing - Pt. sitting in her wheelchair in NAD. Awake and alert. Nonverbal. Staff member present. Skin: Positive: Warm, Dry Head/Face: Positive: Normal Head/Face Inspection Eyes: Positive: Normal, EOMI, GENARO Neck: Positive: Supple Respiratory/Lung Sounds: Positive: Clear to Auscultation, Breath Sounds Present Cardiovascular: Positive: Normal, RRR Abdomen Description: Positive: Nontender, Soft Neurological: Positive: Normal, CN Intact II-III Psychiatric: Positive: Affect/Mood Appropriate Diagnostics - Vital Signs Vital Signs Temp Pulse Resp BP Pulse Ox 12/31/18 12:07 98.0 F 86 18 97/66 97 - Laboratory Result Diagrams: 12/31/18 13:45 12/31/18 13:45 Lab Statement: Any lab studies that have been ordered have been reviewed, and results considered in the medical decision making process. Complex Multi-Symp Course/Dx Course Of Treatment: Pt. presenting with hematuria, decreased oral intake and decreased activity. She is afebrile. BP low. Exam unremarkable. Pt. started on IV fluids. U/A shows a nitrate positive infection. CBC shows heme concentration. Na 150. Cr slightly elevated. Pt. given a second liter of fluids and IV rocephin. Given dehydration and poor oral intake, hospitalist consulted for admission. I spoke with Dr. eli and he will accept pt. to his service. - Diagnoses Provider Diagnoses: UTI (urinary tract infection), Dehydration Discharge - Sign-Out/Discharge Documenting (check all that apply): Patient Departure Patient Received Moderate/Deep Sedation with Procedure: No - Discharge Plan Condition: Stable Disposition: ADMITTED TO [facility] Referrals: Richard Sharif MD [Primary Care Provider] - - Billing Disposition and Condition Condition: STABLE Disposition: Admitted to [facility]
[2018-12-31 14:02] LABS: ABS Basophils 0.1 10^3/ul (0-0.2); ABS Lymphocytes 1.5 10^3/ul (1.0-4.8); ABS Monocytes 0.3 10^3/ul (0-0.8); ABS Neutrophils 5.1 10^3/ul (1.5-7.7); Eosinophil % 0.7 %; Hematocrit 53 % (35-47); Hemoglobin 17.7 g/dL (12.0-16.0); Lymphocyte % 21.2 %; Mean Corpuscular HGB Conc 34 g/dL (31-36); Mean Corpuscular Hemoglobin 33 pg (27-31); Mean Corpuscular Volume 98 fL (80-97); Mean Platelet Volume 8.2 fL (7.4-10.4); Platelet Count 294 10^3/uL (150-450); Red Blood Count 5.37 10^6 /uL (3.70-4.87); Red Cell Distribution Width 13 % (10-15); White Blood Count 7.1 10^3/uL (3.5-10.8)
[2018-12-31 14:12] LABS: Albumin 3.6 g/dL (3.2-5.2); BUN/Creatinine Ratio 22.5 (8-20); C Reactive Protein 5.97 mg/L (<8.01); Calcium 8.6 mg/dL (8.6-10.3); EGFR African American 60.9 (>60); EGFR Non-African American 50.3 (>60); Globulin 3.5 g/dL (2-4); Potassium 3.9 mmol/L (3.5-5.0); Total Bilirubin 0.3 mg/dL (0.2-1.0); Total Protein 7.1 g/dL (6.4-8.9)
[2018-12-31 14:27] LABS: Urine Appearance Cloudy; Urine Bacteria 1+ (Absent); Urine Bilirubin Negative (Negative); Urine Blood 1+ (Negative); Urine Color Yellow; Urine Glucose Negative (Negative); Urine Ketones Negative (Negative); Urine Nitrite Positive (Negative); Urine Protein Negative (Negative); Urine Red Blood Cell Trace(0-2/hpf) (Absent); Urine Specific Gravity 1.021 (1.010-1.030); Urine Urobilinogen Negative (Negative); Urine White Blood Cell 3+(>20/hpf) (Absent)
[2018-12-31] MEDS ORDERED: cefTRIAXone(*) 1 GM in NS 0.9% 50 ML* 50 ML IVPB ONE (14:49)
[2018-12-31] MEDS ORDERED: Acetaminophen TAB* 325 MG PO PRN (15:50)
[2018-12-31] MEDS: Enoxaparin(*) 40 MG/0.4 ML SYR SUBCUT SCH (17:40)
[2018-12-31] MEDS: NS 0.9% 1000 ML** 1,000 ML IV SCH (17:45)
--- NOTE | 2018-12-31 19:29 | HP ---
CC: Richard Sharif MD * HISTORY AND PHYSICAL: DATE OF ADMISSION: 12/31/18 PRIMARY CARE PROVIDER: Richard Sharif MD. ATTENDING PHYSICIAN: Sathish Kapadia MD * (dictated by Art Casillas NP). CHIEF COMPLAINT: Hematuria. HISTORY OF PRESENT ILLNESS: Ms. Preston is a 58-year-old female with past medical history of Down syndrome, dementia, seizures, bipolar, GERD, and hypothyroidism, who presents to the emergency room today after she was noted to have hematuria by [facility]. The patient resides at [facility]. The history is obtained from the aide at the bedside, who is not completely familiar with everything that has been going on, although is somewhat familiar. She reports that for the last 2 weeks, the patient has had some difficulty swallowing and she has had decreased oral intake. The patient just many times is refusing to eat or drink. She typically is on a nectar- thick diet, though recently has needed pudding thick liquids. Over the last 1 to 2 days, the patient was noted to have decreased urine output, and today, there was noted to be some blood in her brief, which was concerning for hematuria and so she was brought in to the emergency room. I will note that the patient is nonverbal, so further history is unobtainable. While in the emergency room, the patient was noted to be significantly dehydrated. She received 2 L of IV fluids. She also had a urinalysis, which was remarkable for bacteria, nitrites, and leukocyte esterase, so was given a dose of ceftriaxone. Vitals have been stable and the patient is not meeting sepsis criteria. The patient's aide at the bedside believes that she looks much better already. Because of the concern for dehydration and UTI, the hospitalist service was asked to evaluate for admission. PAST MEDICAL HISTORY: 1. Down syndrome. 2. Seizures. 3. Hypothyroidism. 4. Dementia. 5. GERD. 6. Bipolar disorder. PAST SURGICAL HISTORY: Unknown. HOME MEDICATIONS: 1. Acetaminophen 650 mg p.o. q.4 hours p.r.n. fever, pain. 2. Abilify 1 mg p.o. daily. 3. Docusate 100 mg p.o. b.i.d. 4. Robitussin 2 teaspoons q.4 hours p.r.n. cough. 5. Keppra 500 mg p.o. b.i.d. 6. Levothyroxine 25 mcg p.o. daily. 7. MiraLAX 17 g p.o. daily. 8. Ranitidine 150 mg p.o. b.i.d. ALLERGIES: No known drug allergies. FAMILY HISTORY: Unknown. SOCIAL HISTORY: The patient is a resident at [facility]. The patient 's sister, Karo Metz, will be her surrogate decision maker in the event she is unable to make her own decisions; her phone number is [phone]. REVIEW OF SYSTEMS: Unobtainable as the patient is nonverbal. PHYSICAL EXAMINATION GENERAL: Ms. Preston is a well-developed, well-nourished, petite white woman, lying in bed, in no acute distress. She appears her stated age. VITAL SIGNS: Temp 98.0, heart rate 76, respiratory rate 18, oxygen saturation 98 % on room air, blood pressure 111/63. HEENT: Head is atraumatic/normocephalic. Pupils are equal, round, and reactive to light and accommodation. Extraocular movements are intact. Oral mucous membranes are marquita. NECK: Trachea midline. No lymphadenopathy. RESPIRATORY: Symmetrical chest expansion. No chest wall deformities. Lungs are clear to auscultation throughout. No rhonchi, wheezes, or rales. CARDIOVASCULAR: Regular rate and rhythm. S1, S2 present. No murmurs, rubs, or gallops. No JVD. ABDOMEN: Soft, nontender to palpation. Bowel sounds are normoactive throughout. EXTREMITIES: Skin is warm and smooth bilaterally. No edema. Pedal pulses 2+ bilaterally. NEURO: Awake, alert, and will make brief eye contact when called by her name, though is nonverbal. Moves all extremities. Frequent myoclonic jerks. DIAGNOSTIC STUDIES AND LABORATORY DATA: WBC 7.1, RBC 5.37, hemoglobin 17.7, hematocrit 53, platelets 294. Sodium 150, potassium 3.9, chloride 117, BUN 25, creatinine 1.11, glucose 105. Lactic acid 0.5. Alk phos 158. Urinalysis remarkable for blood, nitrite, leukocyte esterase, white blood cells, and bacteria. Chest x-ray reads as no evidence for acute intrathoracic disease. ASSESSMENT AND PLAN: Ms. Preston is a 58-year-old female with past medical history of Down syndrome, seizures, dementia, bipolar disorder, gastroesophageal reflux disease, and hypothyroidism, who presents to the emergency room today with concerns for decreased oral intake and hematuria and was found to be significantly dehydrated and with urinary tract infection, the patient will be admitted under observation for: 1. Urinary tract infection. Urinalysis is certainly concerning for urinary tract infection, so we will await culture. The patient did receive 1 dose of ceftriaxone in the emergency room and I will continue this for now. Again, she is not meeting sepsis criteria. 2. Dehydration. The patient appears dry on exam and dehydration is supported with hypernatremia and elevated creatinine. This is certainly due to her decreased oral intake over the last 2 weeks, which certainly may be secondary to this urinary tract infection, although it is difficult to decide for us, as the patient is not able to provide any subjective information. She did receive 2 L of fluid in the emergency room and I will continue her normal saline for hydration. I will recheck labs in the morning. 3. Dysphagia. The patient has had decreased oral intake over the last 2 weeks. She typically requires a pureed diet with nectar thick liquids, though staff has recently been giving her pudding thick liquids, as she has been doing better with this. There is certainly concern because the patient does have a history of dysphagia, which may be worsening. At this point, I will keep her n.p.o. and I will have Speech Therapy see her in the morning for a swallow evaluation. Again, I will keep her hydrated with normal saline while she is n.p.o. 4. Down syndrome. Supportive care. 5. Seizure disorder. The patient is noted to have frequent myoclonic jerks which her aid reports are baseline. I did review some recent progress notes from Dr. Calles, and the patient has been noted to have these myoclonic jerks in the past, so I am not particularly concerned about any active seizures, but I will consider consulting Neurology if there is concern at any point. I will also check a Keppra level. For now, continue usual Keppra dose. 6. Hypothyroidism. Continue levothyroxine. 7. Gastroesophageal reflux disease. Continue ranitidine. 8. Bipolar disorder. Continue Abilify. 9. FEN: Again, the patient will be hydrated with normal saline. She will be n.p.o. pending a formal swallow evaluation and does not require any electrolyte repletion at this time. 10. Code status: The patient is a DNR. I did confirm this over the phone with the patient's sister, Karo Metz, who has been updated about the plan of care. There is a MOLST that was brought in with the patient and I have updated this. 11. DVT prophylaxis: Based on the DVT Risk Assessment, the patient scores a 2 putting her at moderate risk. I have ordered Lovenox. TIME SPENT: Approximately 60 minutes were spent on this admission, greater than half of that time was spent face to face with the patient and her caregiver and on the phone with her sister, obtaining my history, performing my physical exam, and reviewing the plan of care. This case has been reviewed with my attending Dr. Kapadia, who is in agreement with the plan of care. ART CASILLAS NP [id number]/CPS #: [id number] EUGENIA
[2018-12-31] MEDS ORDERED: Famotidine TAB* 20 MG PO SCH (21:00)
[2018-12-31] MEDS ORDERED: Famotidine IV* 10 MG/ML 2 ML (20 mg) IV SLOW PU ONE (22:00)
[2018-12-31] MEDS ORDERED: levETIRAcetam 500 MG IVPREMIX* 500 MG/100 ML BAG IV ONE (22:00)
[2018-12-31] MEDS: Docusate CAP* 100 MG PO SCH (22:55)
[2018-12-31] MEDS: levETIRAcetam TAB* 500 MG PO SCH (23:05)
[2019-01-01] MEDS: NS 0.9% 1000 ML** 1,000 ML IV SCH ×2 (04:24→16:05)
[2019-01-01] MEDS ORDERED: Levothyroxine INJ* 100 MCG/5 ML VIAL IV ONE (06:00)
[2019-01-01 06:47] LABS: ABS Basophils 0.1 10^3/ul (0-0.2); ABS Eosinophils 0.1 10^3/ul (0-0.6); ABS Lymphocytes 1.7 10^3/ul (1.0-4.8); ABS Monocytes 0.4 10^3/ul (0-0.8); Eosinophil % 1.1 %; Hematocrit 42 % (35-47); Hemoglobin 14.3 g/dL (12.0-16.0); Lymphocyte % 27.1 %; Mean Corpuscular HGB Conc 34 g/dL (31-36); Mean Corpuscular Hemoglobin 33 pg (27-31); Mean Corpuscular Volume 97 fL (80-97); Mean Platelet Volume 8.1 fL (7.4-10.4); Nucleated Red Blood Cells % 0.1; Platelet Count 224 10^3/uL (150-450); Red Blood Count 4.35 10^6 /uL (3.70-4.87); Red Cell Distribution Width 13 % (10-15); White Blood Count 6.2 10^3/uL (3.5-10.8)
[2019-01-01 07:01] LABS: BUN/Creatinine Ratio 14.4 (8-20); Calcium 8.4 mg/dL (8.6-10.3); EGFR African American 77.5 (>60); EGFR Non-African American 64.1 (>60); Potassium 3.6 mmol/L (3.5-5.0)
[2019-01-01] MEDS ORDERED: ARIPiprazole TAB* 2 MG PO SCH (09:00)
[2019-01-01] MEDS ORDERED: Polyethylene Glycol 3350* 17 GM PACKET PO SCH (09:00)
[2019-01-01] MEDS ORDERED: levETIRAcetam 500 MG IVPREMIX* 500 MG/100 ML BAG IV ONE (09:51)
[2019-01-01] MEDS: Docusate CAP* 100 MG PO SCH (09:56)
--- NOTE | 2019-01-01 11:00 | PN ---
Subjective Date of Service: 01/01/19 Interval History: Ms. Preston is nonverbal and unable to provide any subjective information. She has an aide at the bedside who has worked with her for nearly 20 years. The aide believes she looks improved today compared to the last few days, but is very concerned that she has not been eating lately. She reports that when feeding her, she continuously needs to tap the patient's tongue and/or lips in order to prompt her to swallow and much of the time she is just refusing PO intake. She also confirms that the myoclonic jerks have been going on for as long as she can remember. Nursing call this morning regarding medications and NPO status. Family History: Unchanged from Admission Social History: Unchanged from Admission Past Medical History: Unchanged from Admission Objective Active Medications: Acetaminophen (Tylenol Tab*) 650 mg PO Q4H PRN FEVER/PAIN Aripiprazole (Abilify Tab*) 1 mg PO DAILY [facility] Docusate Sodium (Colace Cap*) 100 mg PO BID [facility] Enoxaparin Sodium (Lovenox(*)) 40 mg SUBCUT Q24H [facility] Famotidine (Pepcid Tab*) 20 mg PO DAILY@2100 [facility]; Protocol Sodium Chloride (Ns 0.9% 1000 Ml) 1,000 mls @ 100 mls/hr IV PER RATE [facility] Ceftriaxone Sodium 1 gm/ (Sodium Chloride) 50 mls @ 100 mls/hr IVPB Q24H [facility] Levetiracetam (Keppra Tab*) 500 mg PO BID [facility] Levothyroxine Sodium (Synthroid Tab*) 25 mcg PO DAILY@0600 [facility] Polyethylene Glycol/Electrolytes (Miralax*) 17 gm PO DAILY [facility] Vital Signs - 8 hr 01/01/19 03:15 Temperature 97.6 F Pulse Rate 68 Respiratory 16 Rate Blood Pressure 135/73 (mmHg) O2 Sat by Pulse 97 Oximetry Oxygen Devices in Use Now: None Appearance: Middle-aged female laying in bed in NAD Eyes: No Scleral Icterus Ears/Nose/Mouth/Throat: Mucous Membranes Moist Neck: NL Appearance and Movements; NL JVP, Trachea Midline Respiratory: Symmetrical Chest Expansion and Respiratory Effort, Clear to Auscultation Cardiovascular: NL Sounds; No Murmurs; No JVD, RRR Abdominal: NL Sounds; No Tenderness; No Distention Extremities: No Edema Neurological: - - Awake and alert, nonverbal Lines/Tubes/Other Access: Clean, Dry and Intact Peripheral IV Result Diagrams: 01/01/19 06:07 01/01/19 06:07 Assess/Plan/Problems-Billing Assessment: Ms. Preston is a 58 yo F with PMH of Down syndrome, seizures, bipolar, GERD, hypothyroidism, and dementia; who presented to the ED when staff at her [facility] noted hematuria and she was found to be dehydrated with a UTI. - Patient Problems (1) UTI (urinary tract infection) Comment: - With hematuria on admission - Urine culture growing >100k colonies E. coli, sensitivities pending - Continue ceftriaxone (2) Dehydration Code(s): E86.0 - DEHYDRATION Comment: - Secondary to decreased PO intake over the last 2 weeks - Na still elevated today - Continue IVF (3) Dysphagia Code(s): R13.10 - DYSPHAGIA, UNSPECIFIED Comment: - History of dysphagia, requiring nectar thick liquids, but recently downgraded to pudding thick by [facility] staff - MOLST indicates no feeding tube - Swallow eval (4) Seizure disorder Code(s): G40.909 - EPILEPSY, UNSP, NOT INTRACTABLE, WITHOUT STATUS EPILEPTICUS Comment: - Continue Keppra IV (5) Down syndrome Code(s): Q90.9 - DOWN SYNDROME, UNSPECIFIED Comment: - Supportive care (6) GERD (gastroesophageal reflux disease) Code(s): K21.9 - GASTRO-ESOPHAGEAL REFLUX DISEASE WITHOUT ESOPHAGITIS Comment : - Continue famotidine IV (7) Bipolar disorder Code(s): F31.9 - BIPOLAR DISORDER, UNSPECIFIED Comment: - Hold Abilify while NPO (8) Hypothyroidism Code(s): E03.9 - HYPOTHYROIDISM, UNSPECIFIED Comment: - Continue levothyroxine IV (9) DVT prophylaxis Code(s): Z29.9 - ENCOUNTER FOR PROPHYLACTIC MEASURES, UNSPECIFIED Comment: - Lovenox (10) DNR (do not resuscitate) Comment: Status and Disposition: Observation. Anticipate d/c back to [facility] when medically stable. Attending: Tania Mar
[2019-01-01] MEDS ORDERED: cefTRIAXone(*) 1 GM in NS 0.9% 50 ML* 50 ML IVPB SCH (15:00)
[2019-01-01] MEDS: Enoxaparin(*) 40 MG/0.4 ML SYR SUBCUT SCH (16:05)
[2019-01-01] MEDS: levETIRAcetam TAB* 500 MG PO SCH (19:17)
[2019-01-01] MEDS: levETIRAcetam 500 MG IVPREMIX* 500 MG/100 ML BAG IV SCH (19:59)
[2019-01-01] MEDS ORDERED: levETIRAcetam TAB* 500 MG PO SCH (21:00)
[2019-01-02] MEDS: NS 0.9% 1000 ML** 1,000 ML IV SCH (05:01)
[2019-01-02] MEDS ORDERED: Levothyroxine TAB* 25 MCG TAB PO SCH (06:00)
[2019-01-02] MEDS ORDERED: Levothyroxine INJ* 100 MCG/5 ML VIAL IV SCH (06:00)
[2019-01-02 06:52] LABS: BUN/Creatinine Ratio 10.8 (8-20); Calcium 8.4 mg/dL (8.6-10.3); EGFR African American 85.1 (>60); EGFR Non-African American 70.4 (>60); Potassium 3.9 mmol/L (3.5-5.0)
[2019-01-02] MEDS ORDERED: Famotidine IV* 10 MG/ML 2 ML (20 mg) IV SLOW PU SCH (09:00)
[2019-01-02] MEDS: levETIRAcetam 500 MG IVPREMIX* 500 MG/100 ML BAG IV SCH (10:59)
--- NOTE | 2019-01-02 12:56 | CONSULT ---
Palliative / Hospice Consult Ordering Provider: Grisel Casillas - Marvin Referal Reason: Goals of care - Subjective Code Status: DNR Advance Directives Location: No Advance Directives MOLST Part A Completed: Yes - on chart MOLST Part E Completed:: Yes - on chart - History or Present Illness History or Present Illness: 58yo female with Down Syndrome [facility] her [facility] with hematuria and decreased intake secondary to dysphagia. PMH is significant for demantia, seizure disorder, bipolar, GERD and hypothyroidism. Pt lived with her sister Karo until 2010 when she went to live in a [facility]. Studies; CXR-neg , urine culture-E. Coli, H/H 14.3/42, BUN/Cr 9/.83, egfr 70.4, Ca 8.4, tprot 7.1 , alb 3.6 and swallow test recommending pureed and thickened liquids. All history is from family, [facility] personnel and medical records. Pt was admitted with UTI, dehydration and dyshagia which has resolved. Lab Values: Abnormal Lab Results 01/02/19 06:21 Sodium 141 D Potassium 3.9 Chloride 110 Carbon Dioxide 25 Anion Gap 6 BUN 9 Creatinine 0.83 Est GFR ( Amer) 85.1 Est GFR (Non-Af Amer) 70.4 BUN/Creatinine Ratio 10.8 Glucose 95 Calcium 8.4 L Laboratory Last Values WBC 6.2 10^3/uL (3.5-10.8) 01/01/19 06:07 RBC 4.35 10^6 /uL (3.70-4.87) 01/01/19 06:07 Hgb 14.3 g/dL (12.0-16.0) 01/01/19 06:07 Hct 42 % (35-47) 01/01/19 06:07 MCV 97 fL (80-97) 01/01/19 06:07 MCH 33 pg (27-31) H 01/01/19 06:07 MCHC 34 g/dL (31-36) 01/01/19 06:07 RDW 13 % (10-15) 01/01/19 06:07 Plt Count 224 10^3/uL (150-450) 01/01/19 06:07 MPV 8.1 fL (7.4-10.4) 01/01/19 06:07 Neut % (Auto) 63.7 % 01/01/19 06:07 Lymph % (Auto) 27.1 % 01/01/19 06:07 [place] % (Auto) 6.3 % 01/01/19 06:07 Eos % (Auto) 1.1 % 01/01/19 06:07 Baso % (Auto) 1.8 % 01/01/19 06:07 Absolute Neuts (auto) 4.0 10^3/ul (1.5-7.7) 01/01/19 06:07 Absolute Lymphs (auto) 1.7 10^3/ul (1.0-4.8) 01/01/19 06:07 Absolute Monos (auto) 0.4 10^3/ul (0-0.8) 01/01/19 06:07 Absolute Eos (auto) 0.1 10^3/ul (0-0.6) 01/01/19 06:07 Absolute Basos (auto) 0.1 10^3/ul (0-0.2) 01/01/19 06:07 Absolute Nucleated RBC 0.0 10^3/ul 01/01/19 06:07 Nucleated RBC % 0.1 01/01/19 06:07 Sodium 141 mmol/L (135-145) D 01/02/19 06:21 Potassium 3.9 mmol/L (3.5-5.0) 01/02/19 06:21 Chloride 110 mmol/L (101-111) 01/02/19 06:21 Carbon Dioxide 25 mmol/L (22-32) 01/02/19 06:21 Anion Gap 6 mmol/L (2-11) 01/02/19 06:21 BUN 9 mg/dL (6-24) 01/02/19 06:21 Creatinine 0.83 mg/dL (0.51-0.95) 01/02/19 06:21 Est GFR ( Amer) 85.1 (>60) 01/02/19 06:21 Est GFR (Non-Af Amer) 70.4 (>60) 01/02/19 06:21 BUN/Creatinine Ratio 10.8 (8-20) 01/02/19 06:21 Glucose 95 mg/dL (70-100) 01/02/19 06:21 Lactic Acid 0.5 mmol/L (0.5-2.0) 12/31/18 13:45 Calcium 8.4 mg/dL (8.6-10.3) L 01/02/19 06:21 Total Bilirubin 0.30 mg/dL (0.2-1.0) 12/31/18 13:45 AST 25 U/L (13-39) 12/31/18 13:45 ALT 31 U/L (7-52) 12/31/18 13:45 Alkaline Phosphatase 158 U/L (34-104) H 12/31/18 13:45 C-Reactive Protein 5.97 mg/L (<8.01) 12/31/18 13:45 Total Protein 7.1 g/dL (6.4-8.9) 12/31/18 13:45 Albumin 3.6 g/dL (3.2-5.2) 12/31/18 13:45 Globulin 3.5 g/dL (2-4) 12/31/18 13:45 Albumin/Globulin Ratio 1.0 (1-3) 12/31/18 13:45 Urine Color Yellow 12/31/18 13:45 Urine Appearance Cloudy 12/31/18 13:45 Urine pH 5.0 (5-9) 12/31/18 13:45 Ur Specific [place] 1.021 (1.010-1.030) 12/31/18 13:45 Urine Protein Negative (Negative) 12/31/18 13:45 Urine Ketones Negative (Negative) 12/31/18 13:45 Urine Blood 1+ (Negative) A 12/31/18 13:45 Urine Nitrate Positive (Negative) A 12/31/18 13:45 Urine Bilirubin Negative (Negative) 12/31/18 13:45 Urine Urobilinogen Negative (Negative) 12/31/18 13:45 Ur Leukocyte Esterase 2+ (Negative) A 12/31/18 13:45 Urine WBC (Auto) 3+(>20/hpf) (Absent) A 12/31/18 13:45 Urine RBC (Auto) Trace(0-2/hpf) (Absent) 12/31/18 13:45 Urine Bacteria 1+ (Absent) A 12/31/18 13:45 Urine Glucose Negative (Negative) 12/31/18 13:45 - Objective Active Medications: Enoxaparin Sodium (Lovenox(*)) 40 mg SUBCUT Q24H [facility] Last Admin: 01/01/19 16:05 Dose: 40 mg Famotidine (Pepcid Iv*) 20 mg IV SLOW PU DAILY [facility] Last Admin: 01/02/19 10:59 Dose: 20 mg Sodium Chloride (Ns 0.9% 1000 Ml) 1,000 mls @ 100 mls/hr IV PER RATE [facility] Last Admin: 01/02/19 05:01 Dose: 100 mls/hr Ceftriaxone Sodium 1 gm/ (Sodium Chloride) 50 mls @ 100 mls/hr IVPB Q24H [facility] Last Admin: 01/01/19 16:04 Dose: 100 mls/hr Levetiracetam (Keppra Iv Premix*) 500 mg in 100 mls @ 400 mls/hr IV Q12H [facility] Last Admin: 01/02/19 10:59 Dose: 400 mls/hr Levothyroxine Sodium (Synthroid Inj*) 12.5 mcg IV 0600 [facility] Last Admin: 01/02/19 06:26 Dose: 12.5 mcg Vital Signs: Vital Signs: Temp Pulse Resp BP Pulse Ox 97.3 F 50 16 100/68 96 01/02/19 07:15 01/02/19 07:15 01/02/19 07:15 01/02/19 07:15 01/02/19 07:15 Patient Weight: Weight 48.67 kg Intake and Output: Intake & Output 12/31/18 01/01/19 01/02/19 01/03/19 06:59 06:59 06:59 06:59 Intake Total 2200 360 200 Balance 2200 360 200 Weight 48.67 kg Intake: IV Fluids 2200 Oral 0 360 200 Other: Estimated Void Large Large Date of Last Bowel 01/01/19 01/01/19 Movement # Bowel Movements 1 0 Estimated Stool Amount Small Large # Voids 1 1 ADLs: Meal Record Start: 12/31/18 16: 06 Freq: DAILY@0900,1400,1800 Status: Active Protocol: Created 12/31/18 16:06 System (Rec: 12/31/18 16:06 System MED-C12) Document 12/31/18 18:00 [id number] (Rec: 12/31/18 18:47 [id number] MED-C12) Document 01/01/19 09:00 [id number] (Rec: 01/01/19 09:05 [id number] MED-C11) Document 01/01/19 12:42 [id number] (Rec: 01/01/19 12:42 [id number] MED-C09) Document 01/01/19 18:00 [id number] (Rec: 01/01/19 18:46 [id number] MED-C09) Document 01/02/19 09:00 [id number] (Rec: 01/02/19 12:15 [id number] MED-C09) Intake and Output Start: 12/31/18 12: 12 Freq: Status: Active Protocol: Created 12/31/18 12:12 System (Rec: 12/31/18 12:12 System ED-C24) Intake and Output Start: 12/31/18 16: 06 Freq: DAILY@0600,1400,2200 Status: Active Protocol: Created 12/31/18 16:06 System (Rec: 12/31/18 16:06 System MED-C12) Document 12/31/18 22:00 [id number] (Rec: 01/01/19 00:14 [id number] MED-C09) Document 01/01/19 04:49 [id number] (Rec: 01/01/19 04:52 [id number] MED-C09) Document 01/01/19 14:00 [id number] (Rec: 01/01/19 14:08 [id number] MED-C09) Document 01/01/19 22:00 [id number] (Rec: 01/01/19 22:44 [id number] MED-C09) Document 01/02/19 06:00 [id number] (Rec: 01/02/19 06:36 [id number] MED-C09) Eyes: No Scleral Icterus Ears/Nose/Mouth/Throat: Mucous Membranes Moist Neck: NL Appearance and Movements; NL JVP, Trachea Midline Cardiovascular: NL Sounds; No Murmurs; No JVD, RRR Abdominal: NL Sounds; No Tenderness; No Distention Extremities: No Edema Neurological: - - Awake and alert, nonverbal - Assessment Assessment: 58yo female with Down's Syndrome presents with urinary tract infection and dehydration - Plan Consult Plan (MU): Palliative Plan: Spoke with pt's sister Karo and with [facility] caser Jesse. Karo is agreeable with hospice if eligible. Spoke with Jesse to get more information about pt since she is not communicative. He saw pt this am and felt she was back to her baseline and didn't feel she was eligible for hospice at this time. Pt is able to swallow thickened liquids and is eating again. If pt continues to decline Jesse will contact Dr. Sharif about hospice referral. Pt has lost about 4 pounds in the last few months. Pt is not able to do any self care and is incontinent of bladder and bowel which is not attributed to her dementia. She has declined since last year but is not terminal.Pt is not hospice eligible yet. KPS 40%, PPS 50% - Time On Unit Date of Evaluation: 01/02/19 Hospice Consult Time in: 12:00 Hospice Consult Time Out: 13:00 Hospice Consult Time Total: 60 > 50% of Time Spend In Counseling or Coordinating Care: Yes
[2019-01-02 13:12] VITALS: BP 133/54
--- NOTE | 2019-01-02 16:07 | DS ---
CC: Dr. Richard Sharif * DATE OF ADMISSION: 12/31/2018. DATE OF DISCHARGE: 01/02/2019. PRIMARY CARE PHYSICIAN: Dr. Richard Sharif. ATTENDING PHYSICIAN: Dr. Tania Mar * (dictated by Grisel Casillas NP). PRIMARY DIAGNOSES: 1. Urinary tract infection. 2. Dehydration. 3. Acute kidney injury. 4. Dysphagia. SECONDARY DIAGNOSES: 1. Seizure disorder. 2. Down Syndrome. 3. GERD. 4. Bipolar disorder. 5. Hypothyroidism. STUDIES WHILE IN THE HOSPITAL: 1. Chest x-ray on 12/31/2018, reads as: No evidence for acute intrathoracic disease. HISTORY OF PRESENT ILLNESS AND HOSPITAL COURSE: Ms. Preston is a 58-year-old female with a past medical history of Down Syndrome, dementia, seizures, bipolar disorder, GERD, and hypothyroidism who presented to the emergency room on 12/31/2018 after she was noted to have hematuria. Please see the history and physical by myself for a complete summary of the events leading up to this hospitalization. In short, the patient resides at [facility]. Over the last two weeks, she was noted to have decreased oral intake. She does have a history of dysphagia requiring nectar-thick liquid. She had some decreased urine output over one to two days and then on the day of admission she was noted to have some blood in her briefs and there was some concern for hematuria , and so she was brought into the emergency room. In the emergency room, the patient was noted to be severely dehydrated and received fluids. She was also noticed to have a urinalysis indicative of a urinary tract infection. She was admitted by the hospitalist service. The patient was placed on Ceftriaxone for a urinary tract infection. She did not meet sepsis criteria as she was continued on IV fluids for dehydration and acute kidney injury secondary to hypovolemia. Ultimately, she received upwards of 6 liters of IV fluid, although at this point is properly rehydrated. Again, according to nursing staff, the patient was noted to have poor oral intact and has a history of dysphagia with some concern for worsening dysphagia in recent weeks. The patient was seen by Speech Therapy here in the hospital who recommended a pureed consistency diet with honey-thick liquids by spoon. Medications should be crushed in applesauce. That diet was ordered per their recommendation and the patient has had some p.o. intake while here in the hospital, though that is still noted to be low. Urine culture ultimately grew greater than 100,000 colonies of E. coli resistant to penicillins and cefazolin. I did speak at length with the patient's healthcare proxy, her sister Karo, today about goals of care. The healthcare proxy is very clear that the patient is a DNR/DNI and she is not interested in pursuing a feeding tube, so I did discuss the possibility that if the patient continues to have poor p.o. intact, she may require palliative or hospice care. The healthcare proxy was understanding of this and was agreeable to a Palliative Care consultation. The patient was seen by Dr. Ho today. Dr. Ho did speak with the nurse at [facility] and it was decided that if the patient continues to decline, they will contact the patient's PCP to obtain a hospice referral. On exam today, the patient is nonverbal so is not able to provide any subjective information. She is awake, alert, and will respond to voice. She will maintain eye contact for a brief period of time. Her heart has a regular rate and rhythm without murmurs, rubs, or gallops. Lungs have some scattered rhonchi, though are otherwise clear and she is saturating well on room air. The abdomen is soft and nontender to palpation and has normoactive bowel sounds. There is no edema. Physical assessment is otherwise benign. Ms. Preston is stable for discharge today. Vital signs are as follows: Temperature 97.3, heart rate 74, respiratory rate 16, oxygen saturation 92 percent on room air, blood pressure 133/54. DISCHARGE MEDICATIONS: New medications: 1. Cefdinir 300 mg p.o. b.i.d. times 4 days. Continued medications: 1. Acetaminophen 650 mg p.o. q.4 hours prn fever or pain. 2. Abilify 1 mg p.o. daily. 3. Docusate 100 mg p.o. b.i.d. 4. Guaifenesin two teaspoons p.o. q.4 hours prn cough. 5. Keppra 500 mg p.o. b.i.d. 6. Levothyroxine 25 mcg p.o. daily. 7. MiraLax 17 gm p.o. daily. 8. Ranitidine 150 mg p.o. b.i.d. DISCHARGE PLAN: Ms. Preston will be discharged back to [facility]. Medications are noted above. The patient has received three days of antibiotic therapy here in the hospital and will need to complete another four days of Cefdinir to complete a total of seven days of antibiotic therapy for her urinary tract infection. I will note that the patient is at high risk for developing another urinary tract infection as she is noted to have somewhat frequent loose stools and is incontinent. She can continue her other usual medications as noted above and I have not made any further changes. The patient will need to follow-up with her primary care provider in the next four to seven days. Again, if the patient continues to decline, the staff at [facility] will contact the patient's PCP for a hospice referral and they are aware of these resources. ACTIVITY: As tolerated, though the patient is a Srikanth lift at baseline. DIET: As mentioned above and recommended by our speech therapist will be pureed consistency with honey-thick liquids fed by spoon. The patient should return to the emergency room or nearest hospital for any worsening of symptoms, shortness of breath, lightheadedness, dizziness, chest discomfort, high fevers, chills, night sweats, loss of consciousness, or any other worrisome signs or symptoms. CONDITION ON DISCHARGE: Stable. DISPOSITION: To home. This is a summarized report of a complex medical history and hospital stay. For further details, please see the entire medical record. TIME SPENT: Approximately 50 minutes were spent on this discharge. GRISEL CASILLAS NP [id number]/CPS #: [id number] EUGENIA
== END 2019-01-02 16:30 | disposition home or self-care (01) | DRG 690 ==
LOC: ED 12:04 → MED 15:37 → OBSVTOIN 01-01 11:00
PROVIDERS: ADMIT Internal Medicine; ATTEND Internal Medicine
DX: N39.0 Urinary tract infection, site not specified (principal); N17.9 Acute kidney failure, unspecified; B96.20 Unspecified Escherichia coli [E. coli] as the cause of diseases classified elsewhere; E86.0 Dehydration; R13.10 Dysphagia, unspecified; G40.909 Epilepsy, unspecified, not intractable, without status epilepticus; Q90.9 Down syndrome, unspecified; K21.9 Gastro-esophageal reflux disease without esophagitis; F31.9 Bipolar disorder, unspecified; E03.9 Hypothyroidism, unspecified; Z66 Do not resuscitate; F03.90 Unspecified dementia, unspecified severity, without behavioral disturbance, psychotic disturbance, mood disturbance, and anxiety; R31.9 Hematuria, unspecified; E86.1 Hypovolemia; Z16.11 Resistance to penicillins; R32 Unspecified urinary incontinence; Z79.1 Long term (current) use of non-steroidal anti-inflammatories (NSAID); Z79.899 Other long term (current) drug therapy
CPT/HCPCS: 36415; 71045; 80048; 80053; 80177; 81003; 81015; 83605; 85025; 86140; 87077; 87086; 87186; 87641; 99283; A9270-GY; G0378; J0696; J1650

== ENCOUNTER 2019-07-02 13:34 | Inpatient (IN) | payer MEDICARE, MEDICAID ==
[2019-07-02] MEDS ORDERED: NS 0.9% 1000 ML** 1,000 ML IV.FLUID IV ONE (13:55)
--- NOTE | 2019-07-02 14:04 | ED ---
Altered Mental Status - HPI Summary HPI Summary: Patient is a 58 y/o F presenting to the ED via EMS for a chief complaint of altered mental status. Per patient's caregiver, patient had decreased responsiveness than is typical for her on 07/02/19. Patient was found to be vomiting and sent to [facility] to be assessed. Recently, patient has had intermittent decreased oral intake. At baseline, patient twitches, is non-verbal , and wheelchair bound. Patient has her mouth open and eyes closed, which her caregiver states is not typical for the patient. PMHx is significant for dementia, Down syndrome, and seizure disorder. HISTORY OF PRESENT ILLNESS IS LIMITED DUE TO LEVEL 5 CAVEAT - DEMENTIA AND DECREASED RESPONSIVENESS. - History Of Current Complaint Chief Complaint: EDAltMentalStatus Stated Complaint: LOW BP/AMS PER EMS Time Seen by Provider: 07/02/19 13:55 Hx Obtained From: Family/Sports Manager Hx From Patient Unobtainable Due To: Dementia Onset/Duration: Still Present Timing: Constant Severity Initially: Moderate Severity Currently: Moderate Character: Responsiveness - Decreased Associated Signs And Symptoms: Positive: Vomiting - Allergies/Home Medications Allergies/Adverse Reactions: Allergies Allergy/AdvReac Type Severity Reaction Status Date / Time No Known Allergies Allergy Verified 12/31/18 12:13 Home Medications: Home Medications Vitamins A & D OINT* [Vitamin A & D Oint*] 1 applic TOPICAL DAILY 07/02/19 [ History Confirmed 07/02/19] PMH/Surg Hx/FS Hx/Imm Hx Previously Healthy: No - LIMITED DUE TO LEVEL 5 CAVEAT - DEMENTIA AND DECREASED RESPONSIVENESS. Endocrine/Hematology History: Reports: Hx Thyroid Disease - hypo Sensory History: Denies: Hx Contacts or Glasses, Hx Legally Blind, Hx Deafness, Hx Hearing Aid Opthamlomology History: Denies: Hx Contacts or Glasses, Hx Legally Blind EENT History: Denies: Hx Deafness Neurological History: Reports: Hx Dementia, Hx Seizures, Other Neuro Impairments /Disorders - Down Syndrome - Cancer History Hx Chemotherapy: No Hx Radiation Therapy: No - Surgical History Surgical History: None Surgery Procedure, Year, and Place: None - Immunization History Date of Tetanus Vaccine: 03/07/12 Date of Influenza Vaccine: 02/26/15 Infectious Disease History: No Infectious Disease History: Denies: Hx Clostridium Difficile, Hx Hepatitis, Hx Human Immunodeficiency Virus (HIV), Hx of Known/Suspected MRSA, Hx Shingles, Hx Tuberculosis, Hx Known/ Suspected VRE, Hx Known/Suspected VRSA, History Other Infectious Disease, Traveled Outside the [place] in Last 30 Days - Family History Known Family History: Positive: Other - Mother had dementia Negative: Cardiac Disease, Diabetes - Social History Occupation: Disabled Lives: With Family Alcohol Use: None Hx Substance Use: No Substance Use Type: Reports: None Hx Tobacco Use: No Smoking Status (MU): Never Smoked Tobacco Have You Smoked in the Last Year: No Review of Systems Positive: Other - Positive decreased oral intake Positive: Vomiting Neurological: Other - Positive decreased responsiveness All Other Systems Reviewed And Are Negative: Yes - Comments Additional Review of Systems Comments: REVIEW OF SYSTEMS IS LIMITED DUE TO LEVEL 5 CAVEAT - DEMENTIA AND DECREASED RESPONSIVENESS. Physical Exam - Summary Physical Exam Summary: PHYSICAL EXAM LIMITED DUE TO LEVEL 5 CAVEAT - DEMENTIA AND DECREASED RESPONSIVENESS. Constitutional: Well-developed, Well-nourished, Alert. (-) Distressed Skin: Warm, Dry HENT: Normocephalic; Atraumatic. Dry oral mucosa. Eyes: Conjunctiva normal Neck: Musculoskeletal ROM normal neck. (-) JVD, (-) Stridor, (-) Tracheal deviation Cardio: Rhythm regular, rate normal, Heart sounds normal; Intact distal pulses; The pedal pulses are 2+ and symmetric. Radial pulses are 2+ and symmetric. (-) Murmur Pulmonary/Chest wall: Effort normal. (-) Respiratory distress, (-) Wheezes, (-) Rales Abd: Soft, (-) tenderness, (-) Distension, (-) Guarding, (-) Rebound Musculoskeletal: (-) Edema Lymph: (-) Cervical adenopathy Neuro: Patient does not respond to verbal stimulus at baseline, lethargic. Psych: Mood and affect Normal Triage Information Reviewed: Yes Vital Signs On Initial Exam: Initial Vitals Temp Pulse Resp BP Pulse Ox 97.4 F 73 20 81/56 98 07/02/19 13:42 07/02/19 13:42 07/02/19 13:42 07/02/19 13:42 07/02/19 13:42 Vital Signs Reviewed: Yes Procedures - Sedation Patient Received Moderate/Deep Sedation with Procedure: No Diagnostics - Vital Signs Vital Signs Temp Pulse Resp BP Pulse Ox 07/02/19 13:55 92 07/02/19 13:42 97.4 F 73 20 81/56 98 - Laboratory Result Diagrams: 07/02/19 15:47 07/02/19 15:47 Lab Statement: Any lab studies that have been ordered have been reviewed, and results considered in the medical decision making process. - Radiology Chest X-ray Radiology Interpretation Completed By: Radiologist Summary of Radiographic Findings: Chest X-ray IMPRESSION: RIGHT BASILAR INFILTRATE. RECOMMEND FOLLOW-UP CHEST X-RAYS TO RESOLUTION. Reviewed by Dr. Murcia. - EKG 14:18 Cardiac Rate: NL - 75 BPM EKG Rhythm: Sinus Rhythm ST Segment: Normal Ectopy: None Summary of EKG Findings: EKG at 14:18 shows normal sinus rhythm with 75 BPM, no STEMI. Reviewed and interpreted by Dr. Murcia. Altered Mental Statu Course/Dx - Course Course Of Treatment: LIMITED DUE TO LEVEL 5 CAVEAT - DEMENTIA AND DECREASED RESPONSIVENESS. Patient is a 58 y/o F presenting to the ED via EMS for a chief complaint of altered mental status. Per patient's caregiver, patient had decreased responsiveness than is typical for her on 07/02/19. Patient was found to be vomiting and sent to [facility] to be [facility]. Recently, patient has had intermittent decreased oral intake. At baseline, patient twitches, is non-verbal , and wheelchair bound. Patient has her mouth open and eyes closed, which her caregiver states is not typical for the patient. PMHx is significant for dementia, Down syndrome, and seizure disorder. On exam, dry oral mucosa, does not respond to verbal stimulus at baseline, lethargic. In the ED course, patient was given ciprofloxacin 400 mg IVPB, vancomycin 1000 mg IV, maxipime 2 gm IV, and IV fluids. Laboratory abnormal findings: WBC 14.5, Hct 48, MCV 99, MCH 33, Plt count platelets clumped, absolute neuts 13.2, absolute lymphs 0.6, urine protein 1+, urine leukocyte esterase trace, urine WBC 2+, urine RBC 1+, hyalie casts present, urine ascorbic acid present. Chest X-ray IMPRESSION: RIGHT BASILAR INFILTRATE. RECOMMEND FOLLOW-UP CHEST X-RAYS TO RESOLUTION. EKG at 14:18 shows normal sinus rhythm with 75 BPM, no STEMI. At 17:12, Dr. Sathish Kapadia reviewed the patients case and agrees to admit the patient to [facility] with a diagnosis of UTI, sepsis, healthcare associated pneumonia. Patient will be admitted to [facility] with a diagnosis of UTI, sepsis, healthcare associated pneumonia. - Diagnoses Provider Diagnoses: Healthcare-associated pneumonia, Sepsis, UTI (urinary tract infection) - Provider Notifications Discussed Care Of Patient With: Sathish Kapadia - At 17:12, Dr. Kapadia reviewed the patients case and agrees to admit the patient to [facility] with a diagnosis of UTI, sepsis, healthcare associated pneumonia. Time Discussed With Above Provider: 17:12 Instructed by Provider To: Admit As Inpatient Discharge ED - Sign-Out/Discharge Documenting (check all that apply): Patient Departure - Admit - Discharge Plan Condition: Stable Disposition: ADMITTED TO [facility] Referrals: Richard Sharif MD [Primary Care Provider] - - Attestation Statements Document Initiated by Scribe: Yes Documenting Scribe: Maddie Landrum Provider For Whom Scribe is Documenting (Include Credential): Rk Murcia MD Scribe Attestation: Maddie Ugalde, scribed for Rk Murcia MD on 07/02/19 at [id number]. Status of Scribe Document: Ready
[2019-07-02 14:53] LABS: Urine Appearance Cloudy; Urine Bilirubin Negative (Negative); Urine Blood Negative (Negative); Urine Color Amber; Urine Glucose Negative (Negative); Urine Ketones Negative (Negative); Urine Nitrite Negative (Negative); Urine Protein 1+(30 mg/dL) (Negative); Urine Specific Gravity 1.024 (1.010-1.030); Urine Urobilinogen Negative (Negative)
[2019-07-02 14:55] LABS: Urine Bacteria Absent (Absent); Urine Red Blood Cell 1+(3-5/hpf) (Absent); Urine White Blood Cell 2+(11-20/hpf) (Absent)
[2019-07-02] MEDS ORDERED: Cefepime 2 GM in Dextrose(*) 2 GM/50 ML BAG IV ONE (15:27)
[2019-07-02] MEDS ORDERED: Ciprofloxacin 400MG IVPREMIX(* 400 MG/200 ML BAG IVPB ONE (15:27)
[2019-07-02] MEDS ORDERED: Vancomycin(*) 1,000 MG in NS 0.9% 250 ML* 250 ML IV ONE (15:27)
[2019-07-02 16:21] LABS: Hematocrit 48 % (35-47); Hemoglobin 15.8 g/dL (12.0-16.0); Mean Corpuscular HGB Conc 33 g/dL (31-36); Mean Corpuscular Hemoglobin 33 pg (27-31); Mean Corpuscular Volume 99 fL (80-97); Red Cell Distribution Width 14 % (10-15); White Blood Count 14.5 10^3/uL (3.5-10.8)
[2019-07-02 16:43] LABS: ABS Basophils 0.1 10^3/ul (0-0.2); ABS Lymphocytes 0.6 10^3/ul (1.0-4.8); ABS Monocytes 0.6 10^3/ul (0-0.8); ABS Neutrophils 13.2 10^3/ul (1.5-7.7); Eosinophil % 0.1 %; Lymphocyte % 3.8 %; Platelet Count Platelets clumped. 10^3/uL (150-450)
[2019-07-02] MEDS ORDERED: NS 0.9% 500 ML* 500 ML IV ONE (18:07)
--- NOTE | 2019-07-02 19:55 | CONSULT ---
Consult Consult: DATE OF CONSULTATION: 07/02/19 REASON FOR CONSULTATION: Hypotension HPI: Roxanna Preston is a 58 year-old woman with a history of Down's syndrome, dementia , seizures, and hypothyroidism who was brought to the ED for altered mental status. The patient is nonverbal at baseline, and history is obtained from chart review, caregiver, and sister. The patient reportedly had decreased level of consciousness and also had an episode of emesis. In the ED she was hypotensive with systolics in the 80s. She received a total of 1500 ml of crystalloid fluid as well as ciprofloxacin, vancomycin, maxipime. The blood pressure improved to 90s-100s. Because of the hypotension a critical care consult was placed by the hospitalist to evaluate for possible admission to ICU. PMH: Down syndrome, seizure disorder, hypothyroidism, dementia, GERD, bipolar disorder PSH: Cardiac valve repair as an . Tubal ligation. Home Medications Medication Instructions Recorded Confirmed Type ARIPiprazole TAB* [Abilify 2 MG 1 mg PO DAILY 09/25/17 07/02/19 History TAB*] Acetaminophen TAB* [Tylenol TAB*] 650 mg PO Q4H PRN 09/25/17 07/02/19 History Levothyroxine TAB* [Synthroid 25 25 mcg PO DAILY 09/25/17 07/02/19 History MCG TAB*] Polyethylene Glycol 3350* [Miralax 17 gm PO DAILY 09/25/17 07/02/19 History (17 GM DOSE BOB)] Ranitidine TAB (NF) [Zantac TAB 150 mg PO BID 09/25/17 07/02/19 History (NF)] guaiFENesin 100 mg/5 ml LIQ 10 ml PO Q4H PRN 09/25/17 07/02/19 History [Robitussin 100 mg/5ml LIQ] levETIRAcetam TAB* [Keppra TAB*] 500 mg PO BID 09/25/17 07/02/19 History Docusate CAP* [Colace Cap*] 100 mg PO BID 12/31/18 07/02/19 History Vitamins A & D OINT* [Vitamin A & 1 applic TOPICAL DAILY 07/02/19 07/02/19 History D Oint*] Allergies No Known Allergies Allergy (Verified 12/31/18 12:13) SH: Patient lives in a chcf. She is a marie of the [facility]. Her sister Karo Metz is her guardian. No history of tobacco, alcohol, or drug use. ROS: Unable to obtain due to patient's mental status (dementia and Down's syndrome). PHYSICAL EXAM Temp Pulse Resp BP Pulse Ox 97.4 F 81 31 104/54 93 07/02/19 13:42 07/02/19 18:48 07/02/19 18:48 07/02/19 18:48 07/02/19 18:48 General: No acute distress. Lying in bed with eyes closed intermittently. Head: Normocephalic and atraumatic. Eyes: Pupils equal and reactive. No scleral icterus. Mouth: Moist mucous membranes. Neck: Supple, trachea midline. CV: RRR Respiratory: Clear to auscultation bilaterally. No accessory muscle use on room air. Abdomen: Soft, mildly distended. Extremities: No pedal edema bilaterally. Skin: Intact. Neuro: Nonverbal and unresponsive. Spontaneous tremors (at baseline). Laboratory Results - last 24 hr 07/02/19 07/02/19 07/02/19 14:45 15:47 15:47 WBC 14.5 H RBC 4.80 Hgb 15.8 Hct 48 H MCV 99 H MCH 33 H MCHC 33 RDW 14 Plt Count Platelets clumped. H MPV Not Reportable Neut % (Auto) 91.6 Lymph % (Auto) 3.8 [place] % (Auto) 3.8 Eos % (Auto) 0.1 Baso % (Auto) 0.7 Absolute Neuts (auto) 13.2 H Absolute Lymphs (auto) 0.6 L Absolute Monos (auto) 0.6 Absolute Eos (auto) 0.0 Absolute Basos (auto) 0.1 Absolute Nucleated RBC 0.0 Nucleated RBC % 0.0 INR (Anticoag Therapy) APTT Sodium Cancelled Potassium Cancelled Chloride Cancelled Carbon Dioxide Cancelled Anion Gap Cancelled BUN Cancelled Creatinine Cancelled Est GFR ( Amer) Cancelled Est GFR (Non-Af Amer) Cancelled BUN/Creatinine Ratio Cancelled Glucose Cancelled Lactic Acid Calcium Cancelled Total Bilirubin Cancelled AST Cancelled ALT Cancelled Alkaline Phosphatase Cancelled Troponin I 0.01 Total Protein Cancelled Albumin Cancelled Globulin Cancelled Albumin/Globulin Ratio Cancelled TSH Cancelled Free T4 Cancelled Urine Color Dayna Urine Appearance Cloudy Urine pH 5.0 Ur Specific Gary 1.024 Urine Protein 1+(30 mg/dl) A Urine Ketones Negative Urine Blood Negative Urine Nitrate Negative Urine Bilirubin Negative Urine Urobilinogen Negative Ur Leukocyte Esterase Trace A Urine WBC (Auto) 2+(11-20/hpf) A Urine RBC (Auto) 1+(3-5/hpf) A Urine Bacteria Absent Hyaline Casts Present A Urine Glucose Negative Urine Ascorbic Acid * A 07/02/19 07/02/19 07/02/19 16:22 20:25 20:25 WBC RBC Hgb Hct MCV MCH MCHC RDW Plt Count MPV Neut % (Auto) Lymph % (Auto) [place] % (Auto) Eos % (Auto) Baso % (Auto) Absolute Neuts (auto) Absolute Lymphs (auto) Absolute Monos (auto) Absolute Eos (auto) Absolute Basos (auto) Absolute Nucleated RBC Nucleated RBC % INR (Anticoag Therapy) 1.00 APTT 28.0 Sodium Potassium Chloride Carbon Dioxide Anion Gap BUN Creatinine Est GFR ( Amer) Est GFR (Non-Af Amer) BUN/Creatinine Ratio Glucose Lactic Acid 1.6 2.0 Calcium Total Bilirubin AST ALT Alkaline Phosphatase Troponin I Total Protein Albumin Globulin Albumin/Globulin Ratio TSH Free T4 Urine Color Urine Appearance Urine pH Ur Specific Gary Urine Protein Urine Ketones Urine Blood Urine Nitrate Urine Bilirubin Urine Urobilinogen Ur Leukocyte Esterase Urine WBC (Auto) Urine RBC (Auto) Urine Bacteria Hyaline Casts Urine Glucose Urine Ascorbic Acid 07/02/19 20:25 WBC RBC Hgb Hct MCV MCH MCHC RDW Plt Count MPV Neut % (Auto) Lymph % (Auto) [place] % (Auto) Eos % (Auto) Baso % (Auto) Absolute Neuts (auto) Absolute Lymphs (auto) Absolute Monos (auto) Absolute Eos (auto) Absolute Basos (auto) Absolute Nucleated RBC Nucleated RBC % INR (Anticoag Therapy) APTT Sodium 142 Potassium 3.0 L Chloride 116 H Carbon Dioxide 22 Anion Gap 4 BUN 19 Creatinine 0.63 Est GFR ( Amer) 117.0 Est GFR (Non-Af Amer) 96.7 BUN/Creatinine Ratio 30.2 H Glucose 99 Lactic Acid Calcium 5.7 L* Total Bilirubin 0.40 AST 40 H ALT 49 Alkaline Phosphatase 59 Troponin I Total Protein 4.3 L Albumin 2.3 L Globulin 2.0 Albumin/Globulin Ratio 1.2 TSH 2.72 Free T4 1.17 H Urine Color Urine Appearance Urine pH Ur Specific Gary Urine Protein Urine Ketones Urine Blood Urine Nitrate Urine Bilirubin Urine Urobilinogen Ur Leukocyte Esterase Urine WBC (Auto) Urine RBC (Auto) Urine Bacteria Hyaline Casts Urine Glucose Urine Ascorbic Acid UA- Trace leukocyte esterase. 2+ WBC Diagnostics Summary of Radiographic Chest X-ray IMPRESSION: RIGHT BASILAR INFILTRATE. Findings [Chest X-ray] RECOMMEND FOLLOW-UP CHEST X-RAYS TO RESOLUTION. Reviewed by Dr. Murcia. Summary of EKG Findings [14:18 EKG at 14:18 shows normal sinus rhythm with 75 BPM ] , no STEMI. Reviewed and interpreted by Dr. Murcia. IMPRESSION: 57F with sepsis due to pneumonia right lower lobe pneumonia and possible UTI. Sepsis Pneumonia Altered mental status Down's syndrome Dementia PLAN: The patient's hypotension improved after receiving IV fluids in the ED. By the time I evaluated the patient at about 1800, her SBP was over 90 and HR was normal. I am comfortable with the patient being admitted to the floor at this time, which I explained to Karo, the patient's sister. I reviewed the patient's MOLST form which says the patient is DNR/DNI with comfort measures only except for trial of IV fluids and antibiotics. The MOLST was filled out by Karo. I discussed with her at length about the patient's advance directives. I talked about a central line and vasopressors which are typically tools for prolonging life. Because the MOLST directs us to pursue only comfort measures, I explained that we would not typically move forward with an invasive procedure such as central line placement for vasopressors. She also would not require admission to the ICU because comfort measures could be implemented on the floor. However, if Karo wants the patient to have more aggressive care, then she may need to be admitted to the ICU for hemodynamic monitoring. Karo is not sure what type of decisions she can make herself because the patient is a marie of the [facility], although Karo is her guardian. She is in discussion with the patient's chcf to determine the level of involvement of the state in the medical decision-making. However, if the patient decompensates, this discussion may need to be revisited to know what level of care should be offered and who should make the decisions. Social work may also be helpful in clarifying the correct steps to follow if the patient's condition were to worsen and there was a possibility of withdrawing care. I spent 60 minutes talking with the sister and evaluating the patient.
[2019-07-02] MEDS ORDERED: NS 0.9% 1000 ML** 1,000 ML IV SCH (20:30)
[2019-07-02] MEDS ORDERED: Vancomycin(*) 1,000 MG in NS 0.9% 250 ML* 250 ML IVPB ONE (20:33)
[2019-07-02] MEDS ORDERED: Piperacillin/Tazobac ADVAN(*) 3.375 GM in NS 0.9% 100 ML* 100 ML IVPB ONE (20:33)
[2019-07-02 20:59] LABS: Albumin 2.3 g/dL (3.2-5.2); Albumin/Globulin Ratio 1.2 (1-3); BUN/Creatinine Ratio 30.2 (8-20); EGFR Non-African American 96.7 (>60); Total Bilirubin 0.4 mg/dL (0.2-1.0); Total Protein 4.3 g/dL (6.4-8.9)
[2019-07-02] MEDS ORDERED: Vancomycin per Pharmacy* NOTE FOLLOW UP SCH (21:00)
[2019-07-02] MEDS ORDERED: Zosyn per Pharmacy* NOTE FOLLOW UP SCH (21:00)
[2019-07-02 21:01] LABS: Calcium 5.7 mg/dL (8.6-10.3)
[2019-07-02 21:28] LABS: TSH (Thyroid Stimulating Horm) 2.72 mcIU/mL (0.34-5.60)
[2019-07-02 21:30] LABS: Free T4 1.17 ng/dL (0.61-1.12)
[2019-07-02] MEDS ORDERED: Calcium Gluconate INJ* 1 GM in NS 0.9% 50 ML* 50 ML IVPB ONE (21:50)
[2019-07-02 23:06] LABS: ABS Basophils 0.1 10^3/ul (0-0.2); ABS Lymphocytes 0.3 10^3/ul (1.0-4.8); ABS Monocytes 0.3 10^3/ul (0-0.8); Eosinophil % 0.1 %; Hematocrit 40 % (35-47); Lymphocyte % 2.4 %; Mean Corpuscular HGB Conc 33 g/dL (31-36); Mean Corpuscular Hemoglobin 32 pg (27-31); Mean Corpuscular Volume 99 fL (80-97); Mean Platelet Volume 7.2 fL (7.4-10.4); Platelet Count 213 10^3/uL (150-450); Red Blood Count 4.02 10^6 /uL (3.70-4.87); Red Cell Distribution Width 14 % (10-15); White Blood Count 13.8 10^3/uL (3.5-10.8)
[2019-07-03] MEDS: Potassium Chloride IV* 40 MEQ in Lactated Ringers 1000 ML Bag* 1,000 ML IVPB SCH ×2 (00:05→09:12)
--- NOTE | 2019-07-03 00:16 | HP ---
CC: Dr. Richard Sharif * ADMISSION HISTORY AND PHYSICAL: DATE OF ADMISSION: 07/02/19 PRIMARY CARE PHYSICIAN: Dr. Richard Sharif. CHIEF COMPLAINT: Vomiting and low blood pressure. HISTORY OF PRESENT ILLNESS: This is a 58-year-old female with past medical history of Down syndrome, progressive history of dementia for the last 10 years to the point that she is no longer verbal for the last 3 years, has been on modified diet, history of seizure disorder, bipolar disorder, gastroesophageal reflux disease, and hypothyroidism, on levothyroxine, who resides at the [facility] and today the [facility] staff noticed that the patient was vomiting and when they tried taking her vital signs, they could not get any, but they noticed that it was very low and could not get an actual proper BP read, at which point, she was sent to the emergency room for further evaluation and her sister was notified regarding this change. The patient has been having decreased p.o. intake due to her swallowing difficulty for the last few months and no further history could be obtained due to the patient's nonverbal status and regarding her urination, the patient has had decreased urination according to the caregiver as she does not have much input as well. PAST MEDICAL HISTORY: As mentioned, history of Down syndrome, history of seizure disorder, hypothyroidism, gastroesophageal reflux disease, bipolar disorder, dementia which started in 2009 where she became progressively bad with her memory and for the last 3 years, she has been basically nonverbal and has been on a modified diet which includes pureed diet and even that she has had decreased input. PAST SURGICAL HISTORY: She has had a heart surgery as a 1-year-old, but sister was present at bedside was unable to give much details. She has had tubal ligation and some infection which the sister thinks is in the ovarian area for which she required surgical correction as well but sister does not know much details. HOME MEDICATIONS: The patient is on: 1. Abilify 1 mg oral daily. 2. Keppra 500 mg p.o. b.i.d. 3. Zantac 150 mg p.o. b.i.d. 4. Synthroid 25 mcg oral daily. 5. Colace 100 mg p.o. b.i.d. 6. MiraLAX 17 g packet p.o. daily. 7. Vitamin A and D topical daily. FAMILY HISTORY: Unknown. SOCIAL HISTORY: The patient is a resident of [facility]. Her sister , Karo Metz, is her surrogate decision maker with the help of [facility] as well as she is marie of the [facility]. There is a MOLST form, which was filled out in 2019, which states that the patient is DNR and comfort measures only, DNI , but okay to send to the hospital for a trial of IV fluids and use of antibiotics, but she is a marie of the [facility], so sister does not want to change any decisions unless it is okay with the state as well. REVIEW OF SYSTEMS: Unable to be obtained as the patient is nonverbal. PHYSICAL EXAMINATION GENERAL: The patient is opening eyes but nonverbal which is her baseline, seems to be twitching again, this is also her baseline according to the caregiver, which is an ongoing symptom that she can have high-frequency twitches , but worse at some time she could have almost no twitches for a short while. VITAL SIGNS: Temperature was recorded at 97.4; heart rate was noted to be at 79 , but it went as high as 107 in the ER; respiratory rate was elevated up to 32, oxygen saturation was noted to be 92% on room air; BP was initially noted to be very low at 81/56, but after subsequent IV fluid hydration, it improved to 104/ 54. HEENT: Atraumatic, normocephalic. Bilateral pupils reactive. Oral mucosa was very dry. There were chapped lids and very dry tongue and there was some breakage of the lips. NECK: Supple. No jugular venous distention. HEART: S1, S2. Regular rate and rhythm. LUNGS: Could not appreciate a proper lung examination as the patient was not following commands to take deep breath, but overall had decreased air entry and few rhonchi on the right side. Again, these were tested anteriorly and sideways as the patient would not be able to sit up. ABDOMEN: Soft, nontender, nondistended with positive bowel sounds. EXTREMITIES: No cyanosis, clubbing, or edema. DIAGNOSTIC STUDIES/LAB DATA: CBC was showing elevated white count of 14.5, hemoglobin and hematocrit stable, platelet count was unable to be performed due to clumping. Coagulation profile was normal. Comprehensive metabolic panel shows low potassium at 3.0 with normal creatinine, calcium was noted to be low at 5.7, albumin was severely low at 2.3. Free T4 was noted to be 1.14; minimally elevated. Urinalysis was trace leuk esterase positive and negative for any nitrite. Portable chest x-ray was read as right basilar infiltrate. EKG showed sinus rhythm at 75 beats per minute with few PVCs, no ST elevation. IMPRESSION AND PLAN: This is a 58-year-old female with Down syndrome and dementia, hypothyroidism, seizure disorder, bipolar disorder, here due to an episode of vomiting with hypotension, likely sepsis secondary to aspiration pneumonia, possible septic shock. 1. Sepsis secondary to aspiration pneumonia with the positive systemic inflammatory response syndrome criteria being elevated white count and tachypnea and noted have hypotension. For now, we will start the patient on broad spectrum. The patient already received cefepime and Cipro in the ER. We will start vancomycin and Zosyn to broaden the coverage to include methicillin- resistant Staphylococcus aureus as the patient is from a [facility]. Initially , the patient was to go to the ICU and was seen by Dr. Bettina Deal; however, after reviewing the MOLST form, the patient was deemed not appropriate for ICU care and Dr. Deal did not think that the patient should get any central line placement as she was a DNR/DNI with comfort care measures. The patient has very hard IV stick and has already lost one of the two IVs that were placed in the ER. I have requested the ER nurse to place another IV but is unavailable. I discussed again with the patient's family that in the event that we lose the second IV, due to her MOLST, we were not be able to put any central line and we would initiate comfort measures at that time. Family is in agreement with the current treatment plan of IV antibiotics and IV fluids until we lose any IV site and are unable to put any IVs, at which point, she would be completely comfort care. 2. History of Down syndrome, seizure disorder, hypothyroidism. Currently, the patient will be kept n.p.o. as there is clear instruction that the patient does not need an artificial tube feeding and given risk of aspiration, we would wait until the patient is more alert before we attempt any swallowing testing. 3. Electrolyte abnormalities including hypokalemia and hypocalcemia, we will replace as needed. 4. DVT prophylaxis with sequential compression device. [id number]/[facility] #: [id number] [facility]
[2019-07-03] MEDS: Vancomycin(*) 500 MG in NS 0.9% 250 ML* 250 ML IVPB SCH ×3 (00:41→16:12)
[2019-07-03 05:58] LABS: ABS Basophils 0.1 10^3/ul (0-0.2); ABS Eosinophils 0.1 10^3/ul (0-0.6); ABS Monocytes 0.4 10^3/ul (0-0.8); ABS Neutrophils 13.6 10^3/ul (1.5-7.7); Eosinophil % 0.4 %; Hematocrit 39 % (35-47); Lymphocyte % 6.6 %; Mean Corpuscular HGB Conc 33 g/dL (31-36); Mean Corpuscular Hemoglobin 33 pg (27-31); Mean Corpuscular Volume 98 fL (80-97); Mean Platelet Volume 7.5 fL (7.4-10.4); Platelet Count 180 10^3/uL (150-450); Red Blood Count 3.98 10^6 /uL (3.70-4.87); Red Cell Distribution Width 14 % (10-15); White Blood Count 15.2 10^3/uL (3.5-10.8)
[2019-07-03] MEDS ORDERED: ZOSYN 3.375 GM x ONE DOSE over 30 miuntes IVPB ×2 (06:00)
[2019-07-03 06:16] LABS: BUN/Creatinine Ratio 23.1 (8-20); Calcium 8.3 mg/dL (8.6-10.3); EGFR African American 91.5 (>60); EGFR Non-African American 75.6 (>60)
[2019-07-03 06:18] LABS: Potassium 5.1 mmol/L (3.5-5.0)
[2019-07-03] MEDS: NS 0.9% 1000 ML** 1,000 ML IV SCH ×3 (09:07→19:20)
[2019-07-03] MEDS: ZOSYN 3.375 GM Q8H per EXTENDED INFUSION IVPB SCH ×4 (10:48→17:15)
--- NOTE | 2019-07-03 10:59 | PN ---
Subjective Date of Service: 07/03/19 Interval History: Patient is nonverbal and therefore unable to participate in history. Sister, [id number], and caregiver at bedside tell me she frequently has "twitches" which they believe are tremors and usually "act up when it's louder" in her environment. Had extensive discussion with sister at bedside. At this time it is unclear if Lucien KIRK shares guardianship for patient with the sister. For now, she is OK with limited medical intervention. If IV access is lost overnight, she is OK with PICC tomorrow if needed, but would not want jail. Would not want central line. OK with lab draws. Objective Active Medications: Piperacillin Sod/Tazobactam (Sod 3.375 gm/ Sodium Chloride) 100 mls @ 25 mls/ hr IVPB Q8H [facility] Last Admin: 07/03/19 10:48 Dose: 25 mls/hr Vancomycin HCl 500 mg/ Sodium (Chloride) 250 mls @ 250 mls/hr IVPB Q8H [facility] Last Admin: 07/03/19 09:01 Dose: 250 mls/hr Sodium Chloride (Ns 0.9% 1000 Ml) 1,000 mls @ 100 mls/hr IV PER RATE [facility] Last Admin: 07/03/19 09:07 Dose: 100 mls/hr Pharmacy Consult (Vancomycin Per Pharmacy*) 1 note FOLLOW UP .VANC PER PHARMACY [facility]; Protocol Pharmacy Consult (Zosyn Per Pharmacy*) 1 note FOLLOW UP .ZOSYN PER PHARMACY [facility] Pharmacy Profile Note (Vancomycin Trough Check) 1 note FOLLOW UP 0830 ONE Stop: 07/04/19 08:31 Vital Signs - 8 hr 07/03/19 07/03/19 07/03/19 03:10 06:19 07:15 Temperature 97.6 F 97.7 F 97.7 F Pulse Rate 75 75 125 Respiratory 18 17 18 Rate Blood Pressure 131/79 137/101 117/40 (mmHg) O2 Sat by Pulse 96 100 99 Oximetry 07/03/19 07/03/19 07/03/19 08:00 08:02 08:09 Temperature Pulse Rate 78 Respiratory 18 Rate Blood Pressure (mmHg) O2 Sat by Pulse 99 Oximetry Oxygen Devices in Use Now: Nasal Cannula Appearance: White female who appears older than stated age, laying in bed with frequent movements which appear consistent with myoclonus; at one point patient jerked awake with eyes wide open and tongue smacking on roof of mouth Eyes: No Scleral Icterus, - - PERRL Ears/Nose/Mouth/Throat: Mucous Membranes Moist Neck: Trachea Midline Respiratory: Symmetrical Chest Expansion and Respiratory Effort, - - difficulty to auscultate due to poor patient effort, rhonchi which sounds consistent with upper airway congestion Cardiovascular: NL Sounds; No Murmurs; No JVD, RRR Abdominal: - - abd soft, nontender, nondistended Extremities: No Edema, No Clubbing, Cyanosis Skin: No Rash or Ulcers Neurological: - - intermittently alert, usually somnolent but wakes to touch, nonverbal Result Diagrams: 07/03/19 05:26 07/03/19 18:55 Microbiology and Other Data: Microbiology 07/02/19 23:12 Nasal Screen MRSA (PCR) - Final Nasal Mrsa Not Detected Assess/Plan/Problems-Billing Assessment: 58 yo female with Down syndrome, progressive dementia who is nonverbal and does not perform her own ADLs, hypothyroidism, GERD, and seizure d/o presents with vomiting, found to be hypotensive. - Patient Problems (1) Severe sepsis Current Visit: Yes Status: Acute Code(s): A41.9 - SEPSIS, UNSPECIFIED ORGANISM; R65.20 - SEVERE SEPSIS WITHOUT SEPTIC SHOCK SNOMED Code(s): 12723009 Comment: -presents with leukocytosis and MAP<60, likely infectious source of aspiration PNA and potentially UTI as well -blood culture pending -urine culture positive for E. coli, S&S pending -empiric abx with zosyn and vanco initially, will d/c vanco given E. coli as source -leukocytosis has trended up today and patient remains afebrile -severe sepsis has resolved to having one SIRS criterion by this morning, but still with severe sepsis later in the day as hypotension recurred, improving after 2L bolus (2) Seizure disorder Current Visit: No Status: Acute Code(s): G40.909 - EPILEPSY, UNSP, NOT INTRACTABLE, WITHOUT STATUS EPILEPTICUS SNOMED Code(s): 158475067 Comment: - seizure activity confirmed on EEG this AM, received ativan - IV keppra as normal home dose due to NPO - it is unclear when her last dose was given due to vomiting, though keppra is therapeutic - will order levetiracetam level - appreciate neurology consult (3) Aspiration pneumonia Current Visit: Yes Status: Acute Code(s): J69.0 - PNEUMONITIS DUE TO INHALATION OF FOOD AND VOMIT SNOMED Code(s): 676982636 Comment: -patient has known hx of dysphagia with modified diet at home -NPO for while while awaiting CIGAR HEAD PIERCER swallow eval -empiric abx as above (4) Dysphagia Current Visit: No Status: Acute Code(s): R13.10 - DYSPHAGIA, UNSPECIFIED SNOMED Code(s): 51527493 Comment: - History of dysphagia, requiring nectar thick liquids, but recently downgraded to pudding thick by [facility] staff - MOLST indicates no feeding tube - Swallow eval pending, NPO for now (5) Down syndrome Current Visit: No Status: Acute Code(s): Q90.9 - DOWN SYNDROME, UNSPECIFIED SNOMED Code(s): 98273235 Comment: - Supportive care (6) GERD (gastroesophageal reflux disease) Current Visit: No Status: Acute Code(s): K21.9 - GASTRO-ESOPHAGEAL REFLUX DISEASE WITHOUT ESOPHAGITIS SNOMED Code(s): 101301545 Comment: - IV famotidine while NPO (7) Hypothyroidism Current Visit: No Status: Acute Code(s): E03.9 - HYPOTHYROIDISM, UNSPECIFIED SNOMED Code(s): 48891559 Comment: - IV synthroid while NPO (8) DNR (do not resuscitate) Current Visit: No Status: Acute Comment: (9) DVT prophylaxis Current Visit: No Status: Acute Code(s): Z29.9 - ENCOUNTER FOR PROPHYLACTIC MEASURES, UNSPECIFIED SNOMED Code(s): 963986310 Comment: - SCDs Status and Disposition: depends on medical condition; anticipate d/c back home to [facility] at d/c, unless does not improve and sister may change to hospice; appreciate SW involvement to determine if Lucien BERNABES[facility] is shared guardian with sister as this would complicate current decisions
[2019-07-03] MEDS ORDERED: Lorazepam PYXIS KEY ONE (11:23)
[2019-07-03] MEDS ORDERED: LORazepam INJ* 2 MG/ML 1 ML VIAL ONE (11:24)
[2019-07-03] MEDS ORDERED: Lorazepam PYXIS KEY PRN (11:39)
[2019-07-03] MEDS ORDERED: LORazepam INJ* 2 MG/ML 1 ML VIAL IV PUSH ONE (11:40)
[2019-07-03] MEDS ORDERED: levETIRAcetam IV* 750 MG in NS 0.9% 100 ML* 100 ML IVPB ONE (11:40)
[2019-07-03] MEDS ORDERED: levETIRAcetam IV* 250 MG in NS 0.9% 100 ML* 100 ML IVPB ONE (11:44)
[2019-07-03] MEDS: levETIRAcetam 500 MG IVPREMIX* 500 MG/100 ML BAG IV SCH ×2 (11:49→22:17)
[2019-07-03] MEDS ORDERED: levETIRAcetam 500 MG IVPREMIX* 500 MG/100 ML BAG IV SCH ×2 (12:00→21:00)
[2019-07-03] MEDS ORDERED: Pantoprazole IV* 40 MG IV SCH (12:00)
--- NOTE | 2019-07-03 13:54 | CONS ---
CC: Dr. Richard Sharif; Dr. Mihir Calles * CONSULTATION REPORT: DATE OF CONSULT: 07/03/19 CURRENT LOCATION: Room 435. PRIMARY CARE PHYSICIAN: Dr. Richard Sharif. NEUROLOGIST: Dr. Mihir Calles REASON FOR CONSULTATION: Seizure. HISTORY OF PRESENT ILLNESS: Ms. Presotn is a 58-year-old female with a history of Down syndrome and dementia, who has been progressively worsening over years. Her sister and [id number] were at the bedside as well as a caregiver from her home, who were able to validate some of this history. I also reviewed her chart. She is a patient of Dr. Calles's, was last seen on 08/30/18 for a followup on seizures. She does have a known seizure disorder. Per the family, she has had 1 seizure in the past. She was not having any major seizure activity. She was on Keppra 500 mg b.i.d. at that time. The family notes that she has occasional jerking movements of her limbs and body. At the time of her evaluation by Dr. Calles in August, there was no adventitial movements. Her most recent Keppra level was from 08/31/18 at 21.6. She did have an EEG done on 02/24/18, clinical impression abnormal because of background slowing as well as sharp wave focus and slowing out of the left central temporal head region with some spread. There are myoclonic jerks throughout this test but not in clear association with her discharges. The patient was admitted yesterday because the caretakers at the skilled nursing noticed that she had vomited and when they attempted to take her vital signs they were unable to get any. Her blood pressure was very low. She was sent to the emergency room for further evaluation. Per the H and P, it was noted that she was having decreased intake due to swallowing difficulties in the last few months. She apparently had some decreased urination as well. At the time of admission, there was concern for aspiration pneumonia and sepsis. She was noted to have an elevated white count and tachypnea with hypotension. She had received cefepime and and Cipro in the ER and was to be started on vancomycin and Zosyn to broaden the coverage. It was noted at that time that the patient is DNR/DNI with comfort measures and is a very hard stick. At that time, there were no reported seizures. Apparently, the patient had been vomiting and was not taking p.o., it is unclear when the patient received her last Keppra dose. I was called to the bedside this morning because the patient was scheduled for an EEG and during the EEG started to have active seizure-like activity with rhythmic jerking of her arms and legs and body. This is associated with EEG changes concerning for seizures. At the bedside, I ordered her to be given 2 mg of Ativan and her myoclonic type movements stopped. Her EEG slowed at that point and there was no seizure-like activity noted. In addition, I ordered that she have Keppra 750 mg loaded and started her back on her Keppra. The family reports that she is nonverbal, she is not ambulatory, she lies in bed, will occasionally localize to voice and name but then immediately loses attention. She has progressively worsened over years. Other than the typical myoclonic jerks she tends to have frequently, she has had no other seizure-like activity. PAST MEDICAL HISTORY: Obtained from the chart. Down syndrome, seizures, hypothyroidism, GERD, bipolar, dementia which started in 2009 and progressively worsened in the last 3 years, difficulty with swallowing. PAST SURGICAL HISTORY: Includes heart surgery as a 1-year-old, tubal ligation. HOME MEDICATIONS: Include: 1. Abilify 1 mg daily. 2. Keppra 500 mg p.o. b.i.d. 3. Zantac 150 mg p.o. b.i.d. 4. Synthroid 25 mcg daily. 5. Colace 100 mg p.o. b.i.d. 6. MiraLAX 17 g packet daily. 7. Vitamin A. ALLERGIES: No known drug allergies. FAMILY HISTORY: Unknown. SOCIAL HISTORY: She lives in a skilled nursing. REVIEW OF SYSTEMS: Review of systems in 14-organ systems could not be obtained because of the patient's mental status. PHYSICAL EXAM: The patient is afebrile 97.7; blood pressure 129/109 during the seizure, at baseline 130s/64 to 101; pulse rate 75 to 125; respiratory rate 17 to 18; satting 96% to 100% on room air. In general, she is a well-nourished female, lying in her hospital bed. When I arrived, she was actively seizing. She has the stigmata of Down syndrome. She is nonverbal. She is normocephalic. Sclerae are anicteric. Chest: Clear to auscultation bilaterally. Cardiovascular: Regular rate and rhythm. Abdomen: Nondistended. Extremities: There is no significant clubbing, cyanosis, or edema. Skin was warm to the touch. On neurologic exam, it is very limited examination. The patient was sedated on Ativan. When I arrived, the patient was having myoclonic-like jerks, they were both truncal and in her arms and legs. These were recurring in a rhythmic fashion correlated with the EEG changes. After the Ativan, she became very somnolent and sedated with no adventitial movements. Pupils were equally round and reactive to light. She was having some roving eye movements and at times appeared to look at me but then her eyes drifted away. She was blinking. Her tone appeared to be midline. Motor Exam: She had decreased tone throughout, was not withdrawing to pain, was not grimacing to pain in all 4 extremities. DTRs were 1+ at the patella, absent at the ankles. She withdrew Babinski bilaterally and were 2+ at the biceps and 1+ at the brachioradialis bilaterally. Examination was otherwise limited. ASSESSMENT AND PLAN: Ms. Preston is a 58-year-old female with a history of Down' s syndrome, history of dementia, no longer verbal and no longer ambulatory with a history of seizures, previously on Keppra and appeared to be generally controlled with some residual myoclonic-like activity at baseline, presented to the hospital with concern for aspiration pneumonia and sepsis and had been off of her Keppra for an unknown amount of time and had been vomiting with difficulty swallowing. I was called to the bedside this morning for seizure- like activity, which appeared to correlate with seizure-like activity on the EEG , which improved and stopped after 2 mg of Ativan. At this point, I am going to order a CT scan of the head to make sure there is nothing acute that may have caused breakthrough, but I suspect that the reason that she broke through was because she has been without her medication for an unknown amount of time and she is fighting an infection. The plan will be to give her Keppra 750 mg IV x1 loading and then start her back on 500 mg b.i.d. IV to start with until she is able to take p.o. We will monitor her closely for further seizure activity. I will plan to get another EEG later on this afternoon after she has been loaded. She is DNR/DNI. My suspicion for central nervous system infection given her history of presentation is very low. I do not think we need to do any additional aggressive workup at this time. I will follow along and make further recommendations if necessary. Thank you for the opportunity to participate in the care of this patient. [id number]/[facility] #: [id number] EUGENIA
[2019-07-03] MEDS ORDERED: NS 0.9% 1000 ML** 1,000 ML IV ONE ×2 (14:38→16:58)
[2019-07-03] MEDS: Levothyroxine INJ* 100 MCG/5 ML VIAL IV SCH (14:42)
[2019-07-03] MEDS: Famotidine IV* 10 MG/ML 2 ML (20 mg) IV SLOW PU SCH (14:42)
[2019-07-03 19:33] LABS: BUN/Creatinine Ratio 12.1 (8-20); Calcium 7.3 mg/dL (8.6-10.3); EGFR African American 76.6 (>60); EGFR Non-African American 63.3 (>60); Potassium 4.3 mmol/L (3.5-5.0)
--- NOTE | 2019-07-04 00:27 | EEG ---
ELECTROENCEPHALOGRAPHY: DATE OF STUDY: 07/03/19 - ROOM #435 DATE READ: 07/03/19 ORDERED BY: Dr. Boyd. CLINICAL PROBLEM: Roxanna is a 58-year-old female who has a history of Down syndrome, dementia, seizure disorder, bipolar disorder. She is non-verbal. She came to the hospital after having vomiting episodes. She has baseline body twitching. Roxanna had an EEG completed in 2017 and 2018 that were personally reviewed today. MEDICATIONS: 1. Keppra. 2. Zosyn. 3. Vancomycin. 4. Ativan. DURATION OF THE [id number] and again at [id number]. CLINICAL STATE: Encephalopathy. The most prominent feature of this recording was suspected status myoclonus that was captured on video and possibly correlated on EEG. At 1105, the patient clinically had irregular myoclonic jerks involving the face and upper extremities at a frequency of 1-3 Hz. Her eyes were wide open and she was not following command. Electrographically since the beginning of the recording, the background consisted of diffuse EMG artifact with superimposed diffuse spike and slow wave epileptiform activity that is predominantly seen in the frontocentral regions bilaterally. The epileptiform discharges clustered with a frequency evolving from 1 to 3 seconds lasting up until 1126. Interspersed in between the discharges was a background of polymorphic, medium amplitude, 3- 6 Hz alpha and theta slowing. Ativan 2 mg was infused at 1126. The discharges and the myoclonic jerks completely abated, and electrically, the background showed diffuse, lower voltage, 1-2 Hz delta frequency with 4-6 Hz theta frequency seen centrally throughout the recording. Between 5777-8434, the background consisted of a medium amplitude polymorphic slowing with central theta activity. There were no epileptiform discharges at the end of the recording. Hyperventilation and photic stimulation were not performed. EKG showed a normal sinus rhythm with a rate of 70 beats per minute. 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 The EEG responded well to Ativan therapy. Clinically, there is reactivity on the recording after Ativan was administered. These findings raise the suspicion for status myoclonus in a background of moderate diffuse encephalopathy. Please note that there were diffuse epileptiform discharges with morphological spike and slow wave activity that were interspersed between the myoclonic jerks. These were seen in the beginning of the recording and completely abated after Ativan therapy. These findings are suggestive of increased area of epileptogenic potentials. This report was shared with Dr. Boyd at 12 p.m. today. [id number]/[facility] #: [id number] EUGENIA
[2019-07-04] MEDS: ZOSYN 3.375 GM Q8H per EXTENDED INFUSION IVPB SCH ×6 (00:53→16:59)
[2019-07-04] MEDS: Levothyroxine INJ* 100 MCG/5 ML VIAL IV SCH (05:30)
[2019-07-04] MEDS ORDERED: Levothyroxine INJ* 100 MCG/5 ML VIAL IV SCH (06:00)
[2019-07-04 06:25] LABS: ABS Basophils 0.1 10^3/ul (0-0.2); ABS Eosinophils 0.2 10^3/ul (0-0.6); ABS Lymphocytes 0.8 10^3/ul (1.0-4.8); ABS Monocytes 0.4 10^3/ul (0-0.8); ABS Neutrophils 5.7 10^3/ul (1.5-7.7); Eosinophil % 2.9 %; Hematocrit 40 % (35-47); Hemoglobin 13.5 g/dL (12.0-16.0); Lymphocyte % 11.3 %; Mean Corpuscular HGB Conc 34 g/dL (31-36); Mean Corpuscular Hemoglobin 33 pg (27-31); Mean Corpuscular Volume 97 fL (80-97); Platelet Count 173 10^3/uL (150-450); Red Blood Count 4.09 10^6 /uL (3.70-4.87); Red Cell Distribution Width 14 % (10-15); White Blood Count 7.2 10^3/uL (3.5-10.8)
[2019-07-04 06:41] LABS: BUN/Creatinine Ratio 10.1 (8-20); Calcium 7.7 mg/dL (8.6-10.3); EGFR African American 78.6 (>60); EGFR Non-African American 64.9 (>60); Potassium 3.9 mmol/L (3.5-5.0)
[2019-07-04] MEDS: NS 0.9% 1000 ML** 1,000 ML IV SCH (08:15)
[2019-07-04] MEDS: Famotidine IV* 10 MG/ML 2 ML (20 mg) IV SLOW PU SCH (08:15)
[2019-07-04] MEDS: levETIRAcetam 500 MG IVPREMIX* 500 MG/100 ML BAG IV SCH (08:15)
[2019-07-04] MEDS ORDERED: Vancomycin Trough Check NOTE FOLLOW UP ONE (08:30)
--- NOTE | 2019-07-04 09:28 | PN ---
Subjective Date of Service: 07/04/19 Length of Stay: 2 Days Interval History: No seizures reported overnight. She did have an episode of tongue clicking, MD overnight was notified but nothing was changed. Since her seizure, she has remained very somnolent, unarousable and continues to have occasional myoclonic jerks, which, per her nurse convention services manager are chronic and currently at baseline. Family History: Unchanged from Admission Social History: Unchanged from Admission Past Medical History: Unchanged from Admission Objective Active Medications: Famotidine (Pepcid Iv*) 20 mg IV SLOW PU DAILY [facility] Last Admin: 07/04/19 08:15 Dose: 20 mg Piperacillin Sod/Tazobactam (Sod 3.375 gm/ Sodium Chloride) 100 mls @ 25 mls/ hr IVPB Q8H [facility] Last Admin: 07/04/19 00:53 Dose: 25 mls/hr Sodium Chloride (Ns 0.9% 1000 Ml) 1,000 mls @ 100 mls/hr IV PER RATE [facility] Last Admin: 07/04/19 08:15 Dose: 100 mls/hr Levetiracetam (Keppra Iv Premix*) 500 mg in 100 mls @ 400 mls/hr IV Q12H [facility] Last Admin: 07/04/19 08:15 Dose: 400 mls/hr Levothyroxine Sodium (Synthroid Inj*) 12.5 mcg IV 0600 [facility] Last Admin: 07/04/19 05:30 Dose: 12.5 mcg Miscellaneous (Ativan Pyxis Bass) 1 ea N/A .PYXIS BASS PRN PRN Reason: PER PROTOCOL Pharmacy Consult (Zosyn Per Pharmacy*) 1 note FOLLOW UP .ZOSYN PER [facility]ARMACY [facility] Vital Signs 07/03/19 07/03/19 07/03/19 11:15 11:48 13:04 Temperature Pulse Rate 68 Respiratory 18 22 18 Rate Blood Pressure 129/109 (mmHg) O2 Sat by Pulse 95 Oximetry 07/03/19 07/03/19 07/03/19 15:14 16:31 19:15 Temperature 97.0 F 99.1 F Pulse Rate 61 81 Respiratory 18 20 Rate Blood Pressure 92/40 98/64 115/50 (mmHg) O2 Sat by Pulse 95 Oximetry 07/03/19 07/03/19 07/04/19 20:00 23:15 00:00 Temperature 97.5 F Pulse Rate 62 57 Respiratory 20 14 Rate Blood Pressure 121/70 (mmHg) O2 Sat by Pulse 100 Oximetry 07/04/19 07/04/19 07/04/19 04:00 07:41 07:45 Temperature 97.8 F 97.2 F Pulse Rate 73 104 Respiratory 18 16 16 Rate Blood Pressure 100/50 103/40 (mmHg) O2 Sat by Pulse 100 100 Oximetry 07/04/19 07:49 Temperature Pulse Rate Respiratory Rate Blood Pressure (mmHg) O2 Sat by Pulse 99 Oximetry Intake and Output Last 24 Hours 07/02/19 07/03/19 07/04/19 07/05/19 06:59 06:59 06:59 06:59 Intake Total 3456 2076 Output Total 0 Balance 3456 2076 Weight 118 lb 6.4 oz Intake: IV Fluids 2860 1722 Keppra 105 LR 40meqKCl 637 363 NS (0.9%) 473 1254 IVPB 596 354 ABX - VANCOMYCIN 265 Keppra 89 NS (0.9%) 346 Oral 0 0 Output: Urine 0 Other: Estimated Void Large # Bowel Movements 1 Estimated Stool Amount Small # Voids 1 Oxygen Devices in Use Now: Nasal Cannula Neurology Exam: Exam: Stigmata of Downs syndrome Somnolent, will not open eyes to voice or stimulation Spontaneously moving extremities, occasional myoclonic jerks in the arms, legs Will grimace and w/d to pain in the legs, grimace in the hands DTRs are difficult to assess PERRL, face appear symmetric, tongue midline CTAB RRR No significant edema Result Diagrams: 07/04/19 05:30 07/04/19 05:30 Microbiology and Other Data: Microbiology 07/02/19 23:12 Nasal Screen MRSA (PCR) - Final Nasal Mrsa Not Detected Assessment/Plan Ms. Preston is a 58-year-old female with a history of Down's syndrome, history of dementia, no longer verbal and no longer ambulatory with a history of seizures, previously on Keppra and appeared to be generally controlled with some residual myoclonic-like activity at baseline, presented to the hospital with concern for aspiration pneumonia and sepsis and had been off of her Keppra for an unknown amount of time and had been vomiting with difficulty swallowing. Consulted for GTC. --I suspect her GTC was due to missed medication due to vomiting for an unknown amount of time (nurse convention services manager notes at least several doses) in the setting of underlying infection which lowered threshold. She has been loaded back on Keppra and is on her normal dose. EEG yesterday showed likely status myoclonus with epileptiform potentials, likely seizures as well. Repeat after ativan showed a good response. She remains very somnolent this am which may be post- ictal complicated by the fact that she received Ativan yesterday and a higher loading dose of Keppra. She is normally non-verbal and has some response to voice. Will be monitored today for improvement. I am going to check another EEG to confirm that she is not currently in status.
[2019-07-04] MEDS ORDERED: NS 0.9% 500 ML* 500 ML IV ONE (14:02)
--- NOTE | 2019-07-04 14:51 | PN ---
Subjective Date of Service: 07/04/19 Interval History: Ms. Preston is seen in room with staff member at bedside. She is non-verbal, but staff report that she has improved greatly since yesterday, stating she has been more responsive and is opening her eyes. She has been having sips of water and applesauce. Staff report that her "color has improved" and she is less "jerky," stating they believe that she is back to baseline. They report no cough. Pt currently requiring supplemental O2, which is not baseline. Family History: Unchanged from Admission Social History: Unchanged from Admission Past Medical History: Unchanged from Admission Objective Active Medications: Famotidine (Pepcid Iv*) 20 mg IV SLOW PU DAILY [facility] Last Admin: 07/04/19 08:15 Dose: 20 mg Piperacillin Sod/Tazobactam (Sod 3.375 gm/ Sodium Chloride) 100 mls @ 25 mls/ hr IVPB Q8H [facility] Last Admin: 07/04/19 09:27 Dose: 25 mls/hr Sodium Chloride (Ns 0.9% 1000 Ml) 1,000 mls @ 100 mls/hr IV PER RATE [facility] Last Admin: 07/04/19 08:15 Dose: 100 mls/hr Levetiracetam (Keppra Iv Premix*) 500 mg in 100 mls @ 400 mls/hr IV Q12H [facility] Last Admin: 07/04/19 08:15 Dose: 400 mls/hr Levothyroxine Sodium (Synthroid Inj*) 12.5 mcg IV 0600 [facility] Last Admin: 07/04/19 05:30 Dose: 12.5 mcg Miscellaneous (Ativan Pyxis Bah) 1 ea N/A .PYXIS BAH PRN PRN Reason: PER PROTOCOL Pharmacy Consult (Zosyn Per Pharmacy*) 1 note FOLLOW UP .ZOSYN PER PHARMACY [facility] Vital Signs: Temp Pulse Resp BP Pulse Ox 98.4 F 73 16 130/78 100 07/04/19 15:15 07/04/19 15:15 07/04/19 15:15 07/04/19 15:15 07/04/19 15:15 Oxygen Devices in Use Now: Nasal Cannula Appearance: Ms. Preston is a middle aged white woman who is laying in bed. She is sleeping, wakes easily, but quickly falls back to sleep; she is non-verbal; she responds to stimuli. Eyes: No Scleral Icterus Ears/Nose/Mouth/Throat: NL Teeth, Lips, Gums, Clear Oropharnyx, Mucous Membranes Moist Neck: NL Appearance and Movements; NL JVP, Trachea Midline Respiratory: Symmetrical Chest Expansion and Respiratory Effort, Clear to Auscultation - does not follow instructions for deep breathing Cardiovascular: NL Sounds; No Murmurs; No JVD, RRR, No Edema Abdominal: NL Sounds; No Tenderness; No Distention, No Hepatosplenomegaly Extremities: No Edema, No Clubbing, Cyanosis Neurological: - - non-verbal; laying in bed sleeping; wakes easily Result Diagrams: 07/04/19 05:30 07/04/19 05:30 Microbiology and Other Data: Microbiology 07/02/19 23:12 Nasal Screen MRSA (PCR) - Final Nasal Mrsa Not Detected Assess/Plan/Problems-Billing Assessment: 58 yo female with Down syndrome, progressive dementia who is nonverbal and does not perform her own ADLs, hypothyroidism, GERD, and seizure d/o presents with vomiting, found to be hypotensive. - Patient Problems (1) Severe sepsis Comment: -presents with leukocytosis and MAP<60, likely infectious source of aspiration PNA and potentially UTI as well -blood culture NGTD -urine culture positive for E. coli, sensitive to zosyn -empiric abx with zosyn and vanco initially, vanco d/c given E. coli as source -leukocytosis resolved; pt afebrile -severe sepsis resolved (2) Aspiration pneumonia Comment: -patient has known hx of dysphagia with modified diet at home -ST swallow eval completed; pureed solids, thickened liquids -empiric abx as above (3) Acute and chronic respiratory failure with hypoxia Comment: -requiring supplemental O2 -likely 2/2 aspiration pneumonia -wean as able (4) Seizure disorder Comment: - seizure activity confirmed on EEG this AM, received ativan - IV keppra transitioned to PO - it is unclear when her last dose was given due to vomiting, though keppra is therapeutic - will order levetiracetam level - appreciate neurology consult (5) UTI (urinary tract infection) Comment: -UA with trace LE -culture reveals E. coli >100 K colonies -unable to determine if symptomatic -UTI covered with zosyn (prescribed for aspiration pna) (6) Dysphagia Comment: - History of dysphagia, requiring nectar thick liquids, but recently downgraded to pudding thick by [place] staff - MOLST indicates no feeding tube -ST swallow eval complete; recommend pureed solids, honey thick liquids -will transition from IV to PO medications (7) Hypothyroidism Comment: -transition to po levothyroxine (8) GERD (gastroesophageal reflux disease) Comment: -transition to PO famotidine (9) Down syndrome Comment: - Supportive care (10) DVT prophylaxis Comment: - SCDs (11) DNR (do not resuscitate) Comment: Status and Disposition: depends on medical condition; anticipate d/c back home to [facility] at d/c, unless does not improve and sister may change to hospice; appreciate SW involvement to determine if Lucien DDSO is shared guardian with sister as this would complicate current decisions
--- NOTE | 2019-07-04 16:47 | PN ---
Progress Note - Progress Note Date of Service: 07/04/19 Note: Family meeting 07/05/19 at 10:30.
[2019-07-04] MEDS ORDERED: Docusate CAP* 100 MG PO SCH (21:00)
[2019-07-04] MEDS ORDERED: Famotidine TAB* 20 MG PO SCH (21:00)
[2019-07-04] MEDS ORDERED: levETIRAcetam TAB* 500 MG PO SCH (21:00)
[2019-07-04] MEDS ORDERED: Docusate LIQ* 100 MG/10 ML UDC PO SCH (21:30)
--- NOTE | 2019-07-04 21:42 | EEG ---
ELECTROENCEPHALOGRAPHY: DATE OF STUDY: 07/04/19 - ROOM #435 DATE READ: 07/04/19 ORDERED BY: Dr. Boyd. CLINICAL PROBLEM: Ms. Preston is a 58-year-old female with history of Down syndrome, dementia, seizures, and myoclonus, who has intermittent myoclonic jerks as well as increase in suspected seizure activity. MEDICATIONS: 1. Ativan. 2. Pepcid. 3. Synthroid. 4. Keppra. 5. Zosyn. CLINICAL STATE: Encephalopathy. REPORT: The most prominent feature of this recording was rare bifrontal synchronous spike and slow wave epileptiform abnormalities maximally seen at Fp1 , Fz, and F4. There were no clinical seizures with discharges. The patient had an episode of jerk, hiccuping, and grunting documented by the technologist. There were no EEG changes during these symptoms. Otherwise, the background lacked organization or clearly defined anterior- posterior voltage and frequency gradients. There was no discernible posterior dominant rhythm. Instead, the background consisted of diffuse pha-uv-sytxna amplitude polymorphic 3-7 Hz delta and theta range slowing. There was emergence of faster frequency with tactile and verbal stimulation. Photic stimulation and hyperventilation were not performed. Single-electrode EKG showed normal sinus rhythm. Throughout the recording, there were no electrographic seizures. CLINICAL IMPRESSION: This is an abnormal EEG due to the presence of rare bifrontal synchronous spike and slow wave epileptiform discharges with an underlying background of diffuse slowing. These findings are suggestive of an area of increased epileptogenic potentials emanating from the frontal regions bilaterally with superimposed nonspecific moderate diffuse encephalopathy. This EEG has shown improvement when compared to the study from 07/03/19. There were no electrographic seizures. [id number]/[facility] #: [id number] [facility]
[2019-07-04] MEDS: Famotidine SUSP ORALSYR 8 MG/ML PO SCH (21:58)
[2019-07-04] MEDS: levETIRAcetam LIQ* 500 MG/5 ML UDC PO SCH (22:00)
[2019-07-05] MEDS: NS 0.9% 1000 ML** 1,000 ML IV SCH (00:57)
[2019-07-05] MEDS: ZOSYN 3.375 GM Q8H per EXTENDED INFUSION IVPB SCH ×4 (02:15→09:44)
[2019-07-05] MEDS: Levothyroxine TAB* 25 MCG TAB PO SCH (05:20)
[2019-07-05] MEDS ORDERED: Docusate LIQ* 100 MG/10 ML UDC PO PRN (08:05)
--- NOTE | 2019-07-05 08:28 | PN ---
Subjective Date of Service: 07/05/19 Length of Stay: 3 Days Interval History: No new acute issues overnight. She did have some bradycardia with lower blood pressure but asymptomatic per notes. She is more awake this am. No seizure activity reported. She continues to have occasional myoclonic jerks but these are typical for her per the staff yesterday and this am. She remains non- verbal. Palliative care saw the caretakers and family yesterday. Repeat EEG: Epileptiform activity but no electrographic seizures recorded. Family History: Unchanged from Admission Social History: Unchanged from Admission Past Medical History: Unchanged from Admission Objective Active Medications: Aripiprazole (Abilify Tab*) 1 mg PO DAILY [facility] Docusate Sodium (Colace Liq*) 100 mg PO BID PRN PRN Reason: CONSTIPATION Famotidine (Pepcid Susp 8mg/Ml) 20 mg PO BID [facility]; Protocol Last Admin: 07/04/19 21:58 Dose: 20 mg Piperacillin Sod/Tazobactam (Sod 3.375 gm/ Sodium Chloride) 100 mls @ 25 mls/ hr IVPB Q8H [facility] Last Admin: 07/05/19 02:15 Dose: 25 mls/hr Sodium Chloride (Ns 0.9% 1000 Ml) 1,000 mls @ 100 mls/hr IV PER RATE [facility] Last Admin: 07/05/19 00:57 Dose: 100 mls/hr Levetiracetam (Keppra Liq*) 500 mg PO BID [facility] Last Admin: 07/04/19 22:00 Dose: 500 mg Levothyroxine Sodium (Synthroid Tab*) 25 mcg PO DAILY@0600 [facility] Last Admin: 07/05/19 05:20 Dose: 25 mcg Miscellaneous (Ativan Pyxis Bass) 1 ea N/A .PYXIS BASS PRN PRN Reason: PER PROTOCOL Pharmacy Consult (Zosyn Per Pharmacy*) 1 note FOLLOW UP .ZOSYN PER PHARMACY [facility] Vital Signs 07/04/19 07/04/19 07/04/19 11:15 15:15 19:15 Temperature 97.7 F 98.4 F 98.7 F Pulse Rate 64 73 114 Respiratory 16 16 18 Rate Blood Pressure 95/67 130/78 100/67 (mmHg) O2 Sat by Pulse 100 100 97 Oximetry 07/04/19 07/04/19 07/05/19 20:00 23:15 03:15 Temperature 97.8 F 98.0 F Pulse Rate 106 108 Respiratory 18 18 20 Rate Blood Pressure 145/50 130/60 (mmHg) O2 Sat by Pulse 97 97 93 Oximetry 07/05/19 07/05/19 07:15 07:50 Temperature 97.2 F Pulse Rate 87 Respiratory 18 18 Rate Blood Pressure 108/90 (mmHg) O2 Sat by Pulse 94 94 Oximetry Intake and Output Last 24 Hours 07/03/19 07/04/19 07/05/19 07/06/19 06:59 06:59 06:59 06:59 Intake Total 3456 2076 2370 Output Total 0 0 Balance 3456 6 2370 Weight 118 lb 6.4 oz Intake: IV Fluids 2860 1722 1785 Keppra 105 LR 40meqKCl 637 363 NS (0.9%) 473 1254 1685 Zosyn 100 IVPB 596 354 225 ABX - VANCOMYCIN 265 Keppra 89 115 NS (0.9%) 346 Zosyn 110 Oral 0 0 360 Output: Urine 0 0 Other: Estimated Void Large # Bowel Movements 1 Estimated Stool Amount Small Small # Voids 1 Oxygen Devices in Use Now: Nasal Cannula Neurology Exam: General: Lying comfortably in bed, eyes open, stigmata of Downs syndrome Will look in my direction to loud voice but minimal eye contact PERRL, face symmetric Spontaneously moving extremities, myoclonic movements of her arms and trunk Will w/d to pain X 4 DTRs 3+ at BC, BR, Patella with upgoing toes CTAB RRR No significant edema Skin is warm and dry, no lesions Result Diagrams: 07/04/19 05:30 07/04/19 05:30 Microbiology and Other Data: Microbiology 07/02/19 23:12 Nasal Screen MRSA (PCR) - Final Nasal Mrsa Not Detected Assessment/Plan Ms. Preston is a 58-year-old female with a history of Down's syndrome, history of dementia, no longer verbal and no longer ambulatory with a history of seizures, previously on Keppra and appeared to be generally controlled with some residual myoclonic-like activity at baseline, presented to the hospital with concern for aspiration pneumonia and sepsis and had been off of her Keppra for an unknown amount of time and had been vomiting with difficulty swallowing. Consulted for GTC. --Combination of acute illness, vomiting, poor po with some missed doses of Keppra likely was behind her breakthrough seizure. --She appears to be getting back to her baseline, non-verbal, bed-ridden with minimal response. No further seizure activity. She does have baseline myoclonic activity. --Repeat EEG showed epileptiform activity but no seizures recorded. --I would continue her Keppra unchanged, now on PO liquid --She is being treated for underlying infection. --From a neurologic standpoint, she is returning to baseline and stable. Will sign off for now. I told one of her caretakers that I would be happy to follow her as an outpatient but she believes that she already has a neurologist. Do not hesitate to call with any new issues or concerns. Thank you for the opportunity to participate in her care.
[2019-07-05] MEDS: ARIPiprazole TAB* 2 MG PO SCH (09:30)
[2019-07-05] MEDS: Famotidine SUSP ORALSYR 8 MG/ML PO SCH ×2 (09:31→21:30)
[2019-07-05] MEDS: levETIRAcetam LIQ* 500 MG/5 ML UDC PO SCH ×2 (09:32→21:30)
--- NOTE | 2019-07-05 11:20 | CONSULT ---
Palliative / Hospice Consult Ordering Provider: Kate Mccullough - PCP-Kole Referal Reason: Goals of care/no bowel meds/no narcotics - Subjective Code Status: DNR Advance Directives Location: In Chart - History or Present Illness History or Present Illness: 58yo female with Down Syndrome and severe dementia [facility] a [facility] presents with AMS. PMH is significant for Down syndrome, severe dementia- incontinent bladder/bowel, seizure, hypothyroid, bipolar and GERD. PSHx non smoker, no etoh, no drug use, lived at current group for last 8-9yrs, sister aKro is very involved and is her HCP. Studies CXR-R basilar infiltrate, ekg-nsr , brain CT-generalized ventriculopathy with advanced cerebral volume loss, EEG- myoclonus which responded to ativan, H/H 13.6/40, BUN/Cr 9/.89, egfr 64.9, alb 2.3, Ca 7.7, INR 1 and UC-E. Coli. Pt admitted with sepsis due to RLL pneumonia and seizure. Pt has one prior hospitalization 01/01-01/03/2020. All history is from family, penitentiary personnel and medical record, pt is unable to contribute. Lab Values: Laboratory Last Values WBC 7.2 10^3/uL (3.5-10.8) 07/04/19 05:30 RBC 4.09 10^6 /uL (3.70-4.87) 07/04/19 05:30 Hgb 13.5 g/dL (12.0-16.0) 07/04/19 05:30 Hct 40 % (35-47) 07/04/19 05:30 MCV 97 fL (80-97) 07/04/19 05:30 MCH 33 pg (27-31) H 07/04/19 05:30 MCHC 34 g/dL (31-36) 07/04/19 05:30 RDW 14 % (10-15) 07/04/19 05:30 Plt Count 173 10^3/uL (150-450) 07/04/19 05:30 MPV 7.0 fL (7.4-10.4) L 07/04/19 05:30 Neut % (Auto) 79.5 % 07/04/19 05:30 Lymph % (Auto) 11.3 % 07/04/19 05:30 [place] % (Auto) 5.0 % 07/04/19 05:30 Eos % (Auto) 2.9 % 07/04/19 05:30 Baso % (Auto) 1.3 % 07/04/19 05:30 Absolute Neuts (auto) 5.7 10^3/ul (1.5-7.7) 07/04/19 05:30 Absolute Lymphs (auto) 0.8 10^3/ul (1.0-4.8) L 07/04/19 05:30 Absolute Monos (auto) 0.4 10^3/ul (0-0.8) 07/04/19 05:30 Absolute Eos (auto) 0.2 10^3/ul (0-0.6) 07/04/19 05:30 Absolute Basos (auto) 0.1 10^3/ul (0-0.2) 07/04/19 05:30 Absolute Nucleated RBC 0.0 10^3/ul 07/04/19 05:30 Nucleated RBC % 0.0 07/04/19 05:30 INR (Anticoag Therapy) 1.00 (0.82-1.09) 07/02/19 20:25 APTT 28.0 seconds (26.0-38.0) 07/02/19 20:25 Sodium 140 mmol/L (135-145) 07/04/19 05:30 Potassium 3.9 mmol/L (3.5-5.0) 07/04/19 05:30 Chloride 108 mmol/L (101-111) 07/04/19 05:30 Carbon Dioxide 26 mmol/L (22-32) 07/04/19 05:30 Anion Gap 6 mmol/L (2-11) 07/04/19 05:30 BUN 9 mg/dL (6-24) 07/04/19 05:30 Creatinine 0.89 mg/dL (0.51-0.95) 07/04/19 05:30 Est GFR ( Amer) 78.6 (>60) 07/04/19 05:30 Est GFR (Non-Af Amer) 64.9 (>60) 07/04/19 05:30 BUN/Creatinine Ratio 10.1 (8-20) 07/04/19 05:30 Glucose 86 mg/dL (70-100) 07/04/19 05:30 Lactic Acid 2.0 mmol/L (0.5-2.0) 07/02/19 20:25 Calcium 7.7 mg/dL (8.6-10.3) L 07/04/19 05:30 Total Bilirubin 0.40 mg/dL (0.2-1.0) 07/02/19 20:25 AST 40 U/L (13-39) H 07/02/19 20:25 ALT 49 U/L (7-52) 07/02/19 20:25 Alkaline Phosphatase 59 U/L (34-104) 07/02/19 20:25 Troponin I 0.01 ng/mL (<0.03) 07/02/19 15:47 Total Protein 4.3 g/dL (6.4-8.9) L 07/02/19 20:25 Albumin 2.3 g/dL (3.2-5.2) L 07/02/19 20:25 Globulin 2.0 g/dL (2-4) 07/02/19 20:25 Albumin/Globulin Ratio 1.2 (1-3) 07/02/19 20:25 TSH 2.72 mcIU/mL (0.34-5.60) 07/02/19 20:25 Free T4 1.17 ng/dL (0.61-1.12) H 07/02/19 20:25 Urine Color Dayna 07/02/19 14:45 Urine Appearance Cloudy 07/02/19 14:45 Urine pH 5.0 (5-9) 07/02/19 14:45 Ur Specific Rachel 1.024 (1.010-1.030) 07/02/19 14:45 Urine Protein 1+(30 mg/dl) (Negative) A 07/02/19 14:45 Urine Ketones Negative (Negative) 07/02/19 14:45 Urine Blood Negative (Negative) 07/02/19 14:45 Urine Nitrate Negative (Negative) 07/02/19 14:45 Urine Bilirubin Negative (Negative) 07/02/19 14:45 Urine Urobilinogen Negative (Negative) 07/02/19 14:45 Ur Leukocyte Esterase Trace (Negative) A 07/02/19 14:45 Urine WBC (Auto) 2+(11-20/hpf) (Absent) A 07/02/19 14:45 Urine RBC (Auto) 1+(3-5/hpf) (Absent) A 07/02/19 14:45 Urine Bacteria Absent (Absent) 07/02/19 14:45 Hyaline Casts Present (Absent) A 07/02/19 14:45 Urine Glucose Negative (Negative) 07/02/19 14:45 Urine Ascorbic Acid * (Negative) A 07/02/19 14:45 - Objective Active Medications: Aripiprazole (Abilify Tab*) 1 mg PO DAILY [facility] Last Admin: 07/05/19 09:30 Dose: 1 mg Docusate Sodium (Colace Liq*) 100 mg PO BID PRN PRN Reason: CONSTIPATION Famotidine (Pepcid Susp 8mg/Ml) 20 mg PO BID [facility]; Protocol Last Admin: 07/05/19 09:31 Dose: 20 mg Piperacillin Sod/Tazobactam (Sod 3.375 gm/ Sodium Chloride) 100 mls @ 25 mls/ hr IVPB Q8H [facility] Last Admin: 07/05/19 09:44 Dose: 25 mls/hr Sodium Chloride (Ns 0.9% 1000 Ml) 1,000 mls @ 100 mls/hr IV PER RATE [facility] Last Admin: 07/05/19 00:57 Dose: 100 mls/hr Levetiracetam (Keppra Liq*) 500 mg PO BID [facility] Last Admin: 07/05/19 09:32 Dose: 500 mg Levothyroxine Sodium (Synthroid Tab*) 25 mcg PO DAILY@0600 [facility] Last Admin: 07/05/19 05:20 Dose: 25 mcg Miscellaneous (Ativan Pyxis Bah) 1 ea N/A .PYXIS BAH PRN PRN Reason: PER PROTOCOL Pharmacy Consult (Zosyn Per Pharmacy*) 1 note FOLLOW UP .ZOSYN PER PHARMACY [facility] Vital Signs: Vital Signs: Temp Pulse Resp BP Pulse Ox 97.2 F 87 18 108/90 94 07/05/19 07:15 07/05/19 07:15 07/05/19 07:50 07/05/19 07:15 07/05/19 07:50 Patient Weight: Weight 53.705 kg Intake and Output: Intake & Output 07/03/19 07/04/19 07/05/19 07/06/19 06:59 06:59 06:59 06:59 Intake Total 3456 6 2370 10 Output Total 0 0 Balance 3456 6 2370 10 Weight 53.705 kg Intake: IV Fluids 2860 1722 1785 Keppra 105 LR 40meqKCl 637 363 NS (0.9%) 473 1254 1685 Zosyn 100 IVPB 596 354 225 ABX - VANCOMYCIN 265 Keppra 89 115 NS (0.9%) 346 Zosyn 110 Oral 0 0 360 10 Output: Urine 0 0 Other: Estimated Void Large # Bowel Movements 1 Estimated Stool Amount Small Small # Voids 1 ADLs: Meal Record Start: 07/02/19 21: 41 Freq: DAILY@0900,1400,1800 Status: Active Protocol: Created 07/02/19 21:41 System (Rec: 07/02/19 21:41 System [id number]) Document 07/03/19 09:00 [id number] (Rec: 07/03/19 10:14 [id number] TELE-C09) Document 07/03/19 14:00 [id number] (Rec: 07/03/19 14:39 [id number] TELE-C09) Document 07/03/19 18:00 [id number] (Rec: 07/03/19 18:39 [id number] TELE-C07) Document 07/04/19 09:00 [id number] (Rec: 07/04/19 09:40 [id number] TELE-C10) Document 07/04/19 14:00 [id number] (Rec: 07/04/19 16:34 [id number] TELE-C11) Document 07/04/19 18:00 [id number] (Rec: 07/04/19 18:41 [id number] TELE-C11) Document 07/05/19 09:00 [id number] (Rec: 07/05/19 09:45 [id number] TELE-C11) Intake and Output Start: 07/02/19 13: 44 Freq: Status: Active Protocol: Created 07/02/19 13:44 System (Rec: 07/02/19 13:44 System [id number]) Intake and Output Start: 07/02/19 21: 41 Freq: DAILY@0600,1400,2200 Status: Active Protocol: Created 07/02/19 21:41 System (Rec: 07/02/19 21:41 System [id number]-M18) Document 07/03/19 05:58 [id number] (Rec: 07/03/19 05:59 [id number] TELE-C11) Document 07/03/19 14:00 [id number] (Rec: 07/03/19 14:39 [id number] TELE-C09) Document 07/03/19 22:00 [id number] (Rec: 07/03/19 22:37 [id number] TELE-C07) Document 07/04/19 06:00 [id number] (Rec: 07/04/19 06:31 [id number] TELE-C33) Document 07/04/19 14:00 [id number] (Rec: 07/04/19 16:34 [id number] TELE-C11) Document 07/04/19 22:00 [id number] (Rec: 07/04/19 22:23 [id number] TELE-C10) Document 07/05/19 04:59 [id number] (Rec: 07/05/19 04:59 [id number] TELE-C07) Eyes: No Scleral Icterus Ears/Nose/Mouth/Throat: NL Teeth, Lips, Gums, Clear Oropharnyx, Mucous Membranes Moist Neck: NL Appearance and Movements; NL JVP, Trachea Midline Cardiovascular: NL Sounds; No Murmurs; No JVD, RRR, No Edema Abdominal: NL Sounds; No Tenderness; No Distention, No Hepatosplenomegaly Extremities: No Edema, No Clubbing, Cyanosis Neurological: - - non-verbal; laying in bed sleeping; wakes easily - Assessment Assessment: 58yo female with down syndrome and severe dementia admitted with pneumonia - Plan Consult Plan (MU): Hospice Plan: Long discussion with pt's sister Karo(HCP) her , grandson, group therapist Michaela Ramirez Veronica Joe and [employer] caretaker of penitentiary. Pt has MOLST completed reflecting DNR/DNI and no feeding tube. Hospice information/ brochure given to family. They are interested in hospice and want pt to be comfortable and not suffer. Initially, Karo wanted pt to return to hospital if it was for antibiotics and fluid which I recommended waiting to sign on to hospice but after further discussion Karo doesn't want her sister to keep coming back to the hospital because it is distressing to the pt. I did explain if hospice is not working out family can sign pt off at anytime. Family is familiar with hospice they used it with pt's mother and it was a positive experience. halfway personnel have worked with hospice before and are comfortable with them. Plan is to send referral for hospice at the penit[facility]iary. Pt is eligible for hospice with severe dementia. KPS 40%, PPS 30% - Time On Unit Date of Evaluation: 07/05/19 Hospice Consult Time in: 10:30 Hospice Consult Time Out: 11:30 Hospice Consult Time Total: 60 > 50% of Time Spend In Counseling or Coordinating Care: Yes
--- NOTE | 2019-07-05 13:11 | PN ---
Subjective Date of Service: 07/05/19 Interval History: Ms. rPeston is resting comfortably in bed. She responds to verbal stimulus and opens her eyes. Nursing staff report no events overnight. Patient is taking PO pills well and without difficulty. Spoke with Karo, patient's sister. They have decided to pursue Hospice. Discussed home medications, IV fluids, antibiotics. At this time, the family would like to complete the course of antibiotics, and we will transition to oral. IV fluids will be discontinued at this time. Family would like to continue home medications at this time. Family History: Unchanged from Admission Social History: Unchanged from Admission Past Medical History: Unchanged from Admission Objective Active Medications: Aripiprazole (Abilify Tab*) 1 mg PO DAILY [facility] Last Admin: 07/05/19 09:30 Dose: 1 mg Docusate Sodium (Colace Liq*) 100 mg PO BID PRN PRN Reason: CONSTIPATION Famotidine (Pepcid Susp 8mg/Ml) 20 mg PO BID [facility]; Protocol Last Admin: 07/05/19 09:31 Dose: 20 mg Piperacillin Sod/Tazobactam (Sod 3.375 gm/ Sodium Chloride) 100 mls @ 25 mls/ hr IVPB Q8H [facility] Last Admin: 07/05/19 09:44 Dose: 25 mls/hr Sodium Chloride (Ns 0.9% 1000 Ml) 1,000 mls @ 100 mls/hr IV PER RATE [facility] Last Admin: 07/05/19 00:57 Dose: 100 mls/hr Levetiracetam (Keppra Liq*) 500 mg PO BID [facility] Last Admin: 07/05/19 09:32 Dose: 500 mg Levothyroxine Sodium (Synthroid Tab*) 25 mcg PO DAILY@0600 [facility] Last Admin: 07/05/19 05:20 Dose: 25 mcg Miscellaneous (Ativan Pyxis Bass) 1 ea N/A .PYXIS BASS PRN PRN Reason: PER PROTOCOL Pharmacy Consult (Zosyn Per Pharmacy*) 1 note FOLLOW UP .ZOSYN PER PHARMACY [facility] Vital Signs: Temp Pulse Resp BP Pulse Ox 97.2 F 75 16 92/58 97 07/05/19 11:15 07/05/19 11:15 07/05/19 11:15 07/05/19 11:15 02/13/20 11:15 Oxygen Devices in Use Now: Nasal Cannula Appearance: Ms. Preston is a middle-aged white woman who is laying in bed. Responds to verbal stimulus. She is resting comfortably and appears to be in no acute distress. Very few tremors during PE. Eyes: - - Opens eyes intermittently Neck: NL Appearance and Movements; NL JVP, Trachea Midline Respiratory: Symmetrical Chest Expansion and Respiratory Effort, Clear to Auscultation - anteriorly Cardiovascular: NL Sounds; No Murmurs; No JVD, RRR, No Edema Abdominal: NL Sounds; No Tenderness; No Distention, No Hepatosplenomegaly Extremities: No Edema, No Clubbing, Cyanosis Result Diagrams: 07/04/19 05:30 07/04/19 05:30 Microbiology and Other Data: Microbiology 07/02/19 23:12 Nasal Screen MRSA (PCR) - Final Nasal Mrsa Not Detected Assess/Plan/Problems-Billing Assessment: 58 yo female with Down syndrome, progressive dementia who is nonverbal and does not perform her own ADLs, hypothyroidism, GERD, and seizure d/o presents with vomiting, found to be hypotensive. - Patient Problems (1) Severe sepsis Comment: -presents with leukocytosis and MAP<60, likely infectious source of aspiration PNA and potentially UTI -blood culture NGTD -urine culture positive for E. coli, sensitive to zosyn -empiric abx with zosyn and vanco initially, vanco d/c given E. coli as source of UTI -transition to PO antibiotics today and complete course for aspiration pna, UTI , per famiy request -leukocytosis resolved; pt afebrile -severe sepsis resolved (2) Aspiration pneumonia Comment: -patient has known hx of dysphagia with modified diet at home -ST swallow eval completed; pureed solids, thickened liquids -empiric antibiotics; transition to PO today (3) UTI (urinary tract infection) Comment: -UA with trace LE -culture reveals E. coli >100 K colonies -unable to determine if symptomatic -UTI covered with zosyn (prescribed for aspiration pna) -transition to oral abx today (4) Acute and chronic respiratory failure with hypoxia Comment: -requiring supplemental O2 -likely 2/2 aspiration pneumonia -wean as able (5) Seizure disorder Comment: - seizure activity confirmed on EEG, responded to ativan - it is unclear when her last dose was d/t vomiting - levetiracetam level therapeutic - appreciate neurology consult - IV ivanna transitioned to PO; patient tolerating this well (6) Dysphagia Comment: - History of dysphagia, requiring nectar thick liquids, but recently downgraded to pudding thick by [facility] staff - MOLST indicates no feeding tube -ST swallow eval complete; recommend pureed solids, honey thick liquids -continue PO medications (7) Hypothyroidism Comment: -continue levothyroxine (8) GERD (gastroesophageal reflux disease) Comment: -continue famotidine (9) Down syndrome Comment: - Supportive care (10) DVT prophylaxis Comment: - SCDs (11) DNR (do not resuscitate) Comment: Status and Disposition: Inpatient. Anticipate d/c to [facility] with follow up to Hospice; awaiting acceptance from Hospice.
[2019-07-05] MEDS ORDERED: metroNIDAZOLE * 500 MG TABLET PO SCH (14:15)
[2019-07-05] MEDS ORDERED: METRONIDAZOLE PO SCH (15:00)
[2019-07-05] MEDS: METRONIDAZOLE PO SCH ×2 (15:12→21:31)
[2019-07-05] MEDS: Cefdinir SUSP* ORALSYR 50 MG/ML PO SCH (21:31)
[2019-07-06] MEDS: Levothyroxine TAB* 25 MCG TAB PO SCH (06:08)
[2019-07-06] MEDS ORDERED: NS 0.9% 500 ML* 500 ML IV ONE (08:01)
[2019-07-06] MEDS: levETIRAcetam LIQ* 500 MG/5 ML UDC PO SCH ×2 (08:26→20:56)
[2019-07-06] MEDS: ARIPiprazole TAB* 2 MG PO SCH (08:26)
[2019-07-06] MEDS: Famotidine SUSP ORALSYR 8 MG/ML PO SCH ×2 (08:27→20:56)
[2019-07-06] MEDS: Cefdinir SUSP* ORALSYR 50 MG/ML PO SCH ×2 (08:28→20:56)
[2019-07-06] MEDS: METRONIDAZOLE PO SCH ×3 (08:29→20:57)
--- NOTE | 2019-07-06 11:20 | PN ---
Subjective Date of Service: 07/06/19 Interval History: Ms. Preston is laying in bed. She has infrequent tremors and appears comfortable. She had an episode this a.m. where SBP was reportedly in 70's and patient was unresponsive. She was given a fluid bolus; SBP to 90's and patient became alert. When seen today she opens eyes, tracks movements. She in non- verbal at baseline. Family History: Unchanged from Admission Social History: Unchanged from Admission Past Medical History: Unchanged from Admission Objective Active Medications: Aripiprazole (Abilify Tab*) 1 mg PO DAILY [facility] Last Admin: 07/06/19 08:26 Dose: 1 mg Cefdinir (Omnicef Susp*) 300 mg PO Q12H [facility] Last Admin: 07/06/19 08:28 Dose: 300 mg Docusate Sodium (Colace Liq*) 100 mg PO BID PRN PRN Reason: CONSTIPATION Famotidine (Pepcid Susp 8mg/Ml) 20 mg PO BID [facility]; Protocol Last Admin: 07/06/19 08:27 Dose: 20 mg Levetiracetam (Keppra Liq*) 500 mg PO BID [facility] Last Admin: 07/06/19 08:26 Dose: 500 mg Levothyroxine Sodium (Synthroid Tab*) 25 mcg PO DAILY@0600 [facility] Last Admin: 07/06/19 06:08 Dose: 25 mcg Metronidazole (Flagyl 20 Mg/Ml Oralsusp) 500 mg PO TID [facility] Last Admin: 07/06/19 08:29 Dose: 500 mg Miscellaneous (Ativan Pyxis Bass) 1 ea N/A .PYXIS BASS PRN PRN Reason: PER PROTOCOL Vital Signs: Temp Pulse Resp BP Pulse Ox 97 F 55 16 78/45 100 07/06/19 07:40 07/06/19 07:40 07/06/19 08:00 07/06/19 07:55 07/06/19 08:00 Oxygen Devices in Use Now: Nasal Cannula Appearance: Ms. Preston is a middle-aged white female who is sitting up in bed. She is sleeping, but wakes easily to sound, touch. Eyes: No Scleral Icterus, PERRLA Ears/Nose/Mouth/Throat: NL Teeth, Lips, Gums, Clear Oropharnyx, - - Mildly dry oral mucosa Neck: NL Appearance and Movements; NL JVP, Trachea Midline Respiratory: Symmetrical Chest Expansion and Respiratory Effort, Clear to Auscultation Cardiovascular: NL Sounds; No Murmurs; No JVD, RRR, No Edema Abdominal: NL Sounds; No Tenderness; No Distention, No Hepatosplenomegaly Extremities: No Edema, No Clubbing, Cyanosis Result Diagrams: 07/04/19 05:30 07/04/19 05:30 Microbiology and Other Data: Microbiology 07/02/19 23:12 Nasal Screen MRSA (PCR) - Final Nasal Mrsa Not Detected Assess/Plan/Problems-Billing Assessment: 58 yo female with Down syndrome, progressive dementia who is nonverbal and does not perform her own ADLs, hypothyroidism, GERD, and seizure d/o presents with vomiting, found to be hypotensive. - Patient Problems (1) Severe sepsis Comment: -presents with leukocytosis and MAP<60, likely infectious source of aspiration PNA and potentially UTI -blood culture NGTD -urine culture positive for E. coli, sensitive to zosyn -empiric abx with zosyn and vanco initially, vanco d/c given E. coli as source of UTI -transition to PO antibiotics 07/05 and complete course for aspiration pna, UTI , per famiy request -leukocytosis resolved; pt afebrile -severe sepsis resolved (2) Aspiration pneumonia Comment: -patient has known hx of dysphagia with modified diet at home -ST swallow eval completed; pureed solids, thickened liquids -continue antibiotics; transition to PO (3) UTI (urinary tract infection) Comment: -UA with trace LE -culture reveals E. coli >100 K colonies -unable to determine if symptomatic -UTI covered with zosyn (prescribed for aspiration pna) -transition to oral abx (4) Hypotension Comment: -intermittent symptomatic hypotension -responds to small boluses -unsure of cause -will continue boluses -family plans for d/c to [facility]osp[facility] after weekend (5) Acute and chronic respiratory failure with hypoxia Comment: -requiring supplemental O2 -likely 2/2 aspiration pneumonia -wean as able (6) Seizure disorder Comment: - seizure activity confirmed on EEG, responded to ativan - it is unclear when her last dose was d/t vomiting - levetiracetam level therapeutic - appreciate neurology consult - IV keppra transitioned to PO; patient tolerating this well (7) Dysphagia Comment: - History of dysphagia, requiring nectar thick liquids, but recently downgraded to pudding thick by [facility] staff - MOLST indicates no feeding tube -ST swallow eval complete; recommend pureed solids, honey thick liquids -continue PO medications (8) Hypothyroidism Comment: -continue levothyroxine (9) GERD (gastroesophageal reflux disease) Comment: -continue famotidine (10) Down syndrome Comment: - Supportive care (11) DVT prophylaxis Comment: - SCDs (12) DNR (do not resuscitate) Comment: Status and Disposition: Inpatient. Anticipate d/c to [facility] with follow up to Hospice; awaiting acceptance from Hospice.
[2019-07-07 05:15] LABS: Hematocrit 39 % (35-47); Hemoglobin 13.3 g/dL (12.0-16.0); Mean Corpuscular HGB Conc 34 g/dL (31-36); Mean Corpuscular Hemoglobin 33 pg (27-31); Mean Corpuscular Volume 97 fL (80-97); Platelet Count 233 10^3/uL (150-450); Red Blood Count 4.01 10^6 /uL (3.70-4.87); Red Cell Distribution Width 13 % (10-15)
[2019-07-07 05:39] LABS: Calcium 8.1 mg/dL (8.6-10.3); Potassium 3.8 mmol/L (3.5-5.0)
[2019-07-07 05:45] LABS: BUN/Creatinine Ratio 6.6 (8-20); EGFR African American 94.3 (>60); EGFR Non-African American 77.9 (>60)
[2019-07-07] MEDS: Levothyroxine TAB* 25 MCG TAB PO SCH (06:20)
[2019-07-07] MEDS: Famotidine SUSP ORALSYR 8 MG/ML PO SCH (11:23)
[2019-07-07] MEDS: METRONIDAZOLE PO SCH (11:23)
[2019-07-07] MEDS: ARIPiprazole TAB* 2 MG PO SCH (11:23)
[2019-07-07] MEDS: levETIRAcetam LIQ* 500 MG/5 ML UDC PO SCH ×2 (11:23→21:31)
[2019-07-07] MEDS: Cefdinir SUSP* ORALSYR 50 MG/ML PO SCH (11:23)
--- NOTE | 2019-07-07 11:27 | PN ---
Subjective Date of Service: 07/07/19 Interval History: Ms. Preston is seen in bed, sister and [id number] are at bedside. Discussed current situation with Marcos Huddleston. Recently, they have opted for sign on to Hospice on Tuesday, at which time the patient will be discharged back to her home. We discussed continuing medical treatment vs comfort care at this time, and the family have opted for comfort care. Discussion was had, and they have decided to discontinue IVF, IVF boluses, antibiotics, home medications, except for Keppra, which will continue. Vital signs and labs will also be discontinued. All questions were answered. Family History: Unchanged from Admission Social History: Unchanged from Admission Past Medical History: Unchanged from Admission Objective Active Medications: Aripiprazole (Abilify Tab*) 1 mg PO DAILY [facility] Last Admin: 07/06/19 08:26 Dose: 1 mg Cefdinir (Omnicef Susp*) 300 mg PO Q12H [facility] Last Admin: 07/06/19 20:56 Dose: 300 mg Docusate Sodium (Colace Liq*) 100 mg PO BID PRN PRN Reason: CONSTIPATION Famotidine (Pepcid Susp 8mg/Ml) 20 mg PO BID [facility]; Protocol Last Admin: 07/06/19 20:56 Dose: 20 mg Levetiracetam (Keppra Liq*) 500 mg PO BID [facility] Last Admin: 07/06/19 20:56 Dose: 500 mg Levothyroxine Sodium (Synthroid Tab*) 25 mcg PO DAILY@0600 [facility] Last Admin: 07/07/19 06:20 Dose: 25 mcg Metronidazole (Flagyl 20 Mg/Ml Oralsusp) 500 mg PO TID [facility] Last Admin: 07/06/19 20:57 Dose: 500 mg Miscellaneous (Ativan Pyxis Bah) 1 ea N/A .PYXIS BAH PRN PRN Reason: PER PROTOCOL Vital Signs: Temp Pulse Resp BP Pulse Ox 97 F 67 20 95/52 100 07/07/19 07:15 07/07/19 07:15 07/07/19 08:00 07/07/19 07:15 07/07/19 07:15 Oxygen Devices in Use Now: Nasal Cannula Appearance: Ms. Preston is laying in bed. She is awake, alert. She tracks movements at times. Occasional mild tremor. Eyes: No Scleral Icterus, PERRLA Ears/Nose/Mouth/Throat: NL Teeth, Lips, Gums, Clear Oropharnyx, - - dry oral mucosa Neck: NL Appearance and Movements; NL JVP, Trachea Midline Respiratory: Symmetrical Chest Expansion and Respiratory Effort, Clear to Auscultation - anteriorly Cardiovascular: NL Sounds; No Murmurs; No JVD, RRR, No Edema Abdominal: NL Sounds; No Tenderness; No Distention, No Hepatosplenomegaly Extremities: No Edema, No Clubbing, Cyanosis Neurological: - - alert; non-verbal Result Diagrams: 07/07/19 04:55 07/07/19 04:55 Microbiology and Other Data: Microbiology 07/02/19 23:12 Nasal Screen MRSA (PCR) - Final Nasal Mrsa Not Detected Assess/Plan/Problems-Billing Assessment: 58 yo female with Down syndrome, progressive dementia who is nonverbal and does not perform her own ADLs, hypothyroidism, GERD, and seizure d/o presents with vomiting, found to be hypotensive. - Patient Problems (1) Need for comfort care Comment: -Long discussion had with primary decision makers, Karo Kidney, and Marcos Metz. Patient will discharge home on Hospice, planned for Tuesday. At this time, they wish to place the patient on comfort measures. -prn ativan, morphine, atropine drops -continue home Keppra for seizures (2) DNR (do not resuscitate) Comment: Status and Disposition: Inpatient. Anticipate d/c to [facility] with follow up to Hospice; awaiting acceptance from Hospice.
[2019-07-07] MEDS ORDERED: LORazepam TAB(*) 0.5 MG PO PRN (11:29)
[2019-07-07] MEDS ORDERED: Morphine ORAL CONCENTRATE* 5 MG/0.25 ML ORAL.SYRIN SL PRN (11:30)
[2019-07-08] MEDS: levETIRAcetam LIQ* 500 MG/5 ML UDC PO SCH ×2 (09:24→19:39)
--- NOTE | 2019-07-08 14:58 | PN ---
Subjective Date of Service: 07/08/19 Interval History: Ms. Preston is seen in her room. Staff member is at bedside. Nursing reports no events overnight. No seizures; no difficulty with PO medications. Family History: Unchanged from Admission Social History: Unchanged from Admission Past Medical History: Unchanged from Admission Objective Active Medications: Levetiracetam (Keppra Liq*) 500 mg PO BID LINDA Last Admin: 07/08/19 09:24 Dose: 500 mg Lorazepam (Ativan Tab(*)) 0.5 mg PO Q6H PRN PRN Reason: ANXIETY Last Admin: 07/07/19 21:31 Dose: 0.5 mg Morphine Sulfate (Morphine Oral Concentrate*) 5 mg SL Q4H PRN PRN Reason: Pain - Moderate to severe Vital Signs: Temp Pulse Resp BP Pulse Ox 97.7 F 56 20 90/60 100 07/07/19 11:15 07/07/19 11:15 07/08/19 07:56 07/07/19 11:15 07/07/19 11:15 Oxygen Devices in Use Now: Nasal Cannula Appearance: Ms. Preston is a middle-aged white woman who is sitting up in bed. She is asleep when I enter, but wakes easily. Breathing comfortably and in no acute distress. Ears/Nose/Mouth/Throat: - - dry oral mucosa Neck: NL Appearance and Movements; NL JVP, Trachea Midline Respiratory: Symmetrical Chest Expansion and Respiratory Effort, Clear to Auscultation - anteriorly; unable to follow instructions for deep breathing Cardiovascular: NL Sounds; No Murmurs; No JVD, RRR, No Edema Abdominal: NL Sounds; No Tenderness; No Distention, No Hepatosplenomegaly Extremities: No Edema, No Clubbing, Cyanosis Neurological: - - asleep, wakes easily; non-verbal Result Diagrams: 07/07/19 04:55 07/07/19 04:55 Microbiology and Other Data: Microbiology 07/02/19 23:12 Nasal Screen MRSA (PCR) - Final Nasal Mrsa Not Detected Assess/Plan/Problems-Billing Assessment: 58 yo female with Down syndrome, progressive dementia who is nonverbal and does not perform her own ADLs, hypothyroidism, GERD, and seizure d/o presents with vomiting, found to be hypotensive. - Patient Problems (1) Need for comfort care Comment: -Long discussion had with primary decision makers, Karo Kidney, and Marcos Kidney. Patient will discharge home on Hospice, planned for Tuesday. At this time, they wish to place the patient on comfort measures. -prn ativan; does not appear to need morphine, atropine at this time -continue home Keppra for seizures (2) DNR (do not resuscitate) Comment: Status and Disposition: Inpatient. Anticipate d/c to [facility] with follow up to Hospice; awaiting acceptance from Hospice.
[2019-07-08] MEDS ORDERED: Atropine 1% (ORAL/SL)* 15 ML BTL SL PRN (23:07)
[2019-07-09] MEDS: levETIRAcetam LIQ* 500 MG/5 ML UDC PO SCH ×2 (08:34→22:14)
[2019-07-09] MEDS ORDERED: LORazepam TAB(*) 0.5 MG PO PRN (09:13)
--- NOTE | 2019-07-09 09:13 | PN ---
Subjective Date of Service: 07/09/19 Interval History: Comfortable.No complaints.Non verbal Family History: Unchanged from Admission Social History: Unchanged from Admission Past Medical History: Unchanged from Admission Objective Active Medications: Atropine Sulfate (Atropine 1% (Oral/Sl)*) 2 drop SL Q2H PRN PRN Reason: Terminal Secretions Last Admin: 07/08/19 23:41 Dose: 2 drp Levetiracetam (Keppra Liq*) 500 mg PO BID LINDA Last Admin: 07/09/19 08:34 Dose: 500 mg Lorazepam (Ativan Tab(*)) 0.5 mg PO Q6H PRN PRN Reason: ANXIETY Last Admin: 07/07/19 21:31 Dose: 0.5 mg Vital Signs - 8 hr 07/09/19 07:43 Respiratory 16 Rate Oxygen Devices in Use Now: None Eyes: No Scleral Icterus Respiratory: Symmetrical Chest Expansion and Respiratory Effort, Clear to Auscultation Cardiovascular: NL Sounds; No Murmurs; No JVD, RRR Abdominal: NL Sounds; No Tenderness; No Distention Extremities: No Edema Neurological: - - non verbal/in no distress Result Diagrams: 07/07/19 04:55 07/07/19 04:55 Microbiology and Other Data: Microbiology 07/02/19 23:12 Nasal Screen MRSA (PCR) - Final Nasal Mrsa Not Detected Assess/Plan/Problems-Billing Assessment: 58 yo female with Down syndrome, progressive dementia who is nonverbal and does not perform her own ADLs, hypothyroidism, GERD, and seizure d/o presents with vomiting, found to be hypotensive. - Patient Problems (1) Need for comfort care Current Visit: Yes Status: Acute Code(s): [id number] - SNOMED Code(s): 607842173 Comment: -Prior team has had detailed family discussion with primary decision makers, Karo Kidney, and Marcos Kidney. Patient will discharge home on Hospice, planned for Tuesday. At this time, they wish to place the patient on comfort measures. -prn ativan; does not appear to need morphine, atropine at this time -continue home Keppra for seizures (2) DNR (do not resuscitate) Current Visit: No Status: Acute Comment: Status and Disposition: Inpatient. Anticipate d/c to [facility] with follow up to Hospice; awaiting acceptance from Hospice.
[2019-07-10] MEDS: levETIRAcetam LIQ* 500 MG/5 ML UDC PO SCH (09:03)
[2019-07-10 09:28] VITALS: BP 77/37
--- NOTE | 2019-07-10 12:27 | DS ---
DISCHARGE SUMMARY: DATE OF ADMISSION: 07/02/19 DATE OF DISCHARGE: 07/10/19 PRIMARY DIAGNOSES: 1. Sepsis secondary to aspiration pneumonia. 2. Urinary tract infection. 3. Aspiration pneumonia. 4. Hypotension. 5. Seizure disorder. 6. Acute on chronic respiratory failure with hypoxia. SECONDARY DIAGNOSES: 1. Down syndrome. 2. Seizure disorder. 3. Hypothyroidism. 4. Gastroesophageal reflux disease. 5. Bipolar disorder. 6. Dementia, which started in 2009, which became progressively worse with the patient being nonverba l in the last 3 years. 7. Heart surgery when she was 1 years old. HOSPITAL COURSE: A 58-year-old female with past medical history of Down syndrome; progressive olga lidia ia over the last 10 years to the point that she has been nonverbal for the last 3 years, on a modifie d dysphagia diet; seizure disorder; bipolar disorder, who normally lives in [facility], was brought into the hospital after an episode of vomiting and was noted to have a very low blood pressure. Please refer to the history and physical dictated by Dr. Morris for full de tails. The patient's x-ray showed right basilar infiltrate. The patient was treated for sepsis seco ndary to aspiration pneumonia and met SIRS criteria. The patient was started on vancomycin and Zosyn . Was initially going to go to the ICU; however, the patient was noted to be DNR/DNI with comfort me asures and eventually was managed on the floor, did not need pressors, was hydrated and treated with antibiotics for her sepsis. The patient had a brain CT done on 07/03/19, which showed unchanged gene ralized ventriculomegaly with advanced cerebral volume loss and no hemorrhage. This was done in the setting of seizure. The patient was seen by Dr. Boyd, Neurology in consultation. It was thought that her seizure was likely from missing some doses of Keppra in the setting of vomiting and difficulty s wallowing. The patient was noted to have seizure-like activity on EEG monitoring, which improved aft er giving her 2 mg of Ativan. The patient was started on Keppra loading and back to her dose of 500 IV b.i.d. She was slowly transitioned to her home dose of Keppra. Through her hospital course, the patient also had a palliative care consult with Dr. Ho on 07/05/19 as the patient's condition has progressively worsened over years with acute worsening. Please refer to the note by Dr. Ho for full details. Long discussion was held by Dr. Ho with the patient's sister, Karo, healthcare pr oxy; her , Grandson; [place] [facility] supervisors, Michaela Ramirez Veronica, Joe; and home care assistant of [facility]. Hospice information was also given to the patient. In light of significant worsening in her condition, this is the appropriate next step with her progressive dementia and worsening medical con dition. The patient also had another episode of hypotension with blood pressures in the 70s and she was unresponsive on 07/06/19. Discussions were ongoing with the family and the [place] [facility]. The patimarietta nt was transitioned to comfort care on 07/07/19 and was transitioned to hospice. Paperwork in progres s. The patient being discharged back to her [place] [facility] and hospice signing on the patient for [facility] care. Appreciate palliative care team and Dr. Ho's input. At this time of discharge, the dara ent noted to be comfortable and is discharged on Ativan and her seizure medications and atropine for secretions. Further adjustments of her medications can be made per the hospice team. Vitals stable for transfer. LABORATORY DATA: Labs last done on 07/07/19: WBC 6, hemoglobin 13.3, hematocrit 39, platelets noted to be 233. Sodium 140, potassium 3.8, chloride 106, CO2 28, BUN 5, creatinine 0.76. PHYSICAL EXAMINATION: HEENT: Very dry mucous membranes. Heart: S1, S2 present. Regular at the maude e of exam. Lungs: Clear to auscultation. Abdomen: Soft, nondistended. Extremities: Contacted. No edema. Neuro: Nonverbal. Grimaces to pain. MEDICATION LIST AT THE TIME OF DISCHARGE: 1. Keppra 500 p.o. b.i.d. 2. Ativan 0.5 mg p.o. q.3 hours p.r.n. 3. Atropine 2 drops sublingual q.2 p.r.n. CONDITION: Guarded. DISPOSITION: [facility]. TIME SPENT: Total time spent on discharge is equal to 45 minutes. [id number]/[facility] #: [id number]
== END 2019-07-10 09:17 | disposition hospice, home (50) | DRG 871 ==
LOC: ED 13:34 → MEDTELE 20:30
PROVIDERS: ADMIT Internal Medicine; ATTEND Internal Medicine
DX: A41.9 Sepsis, unspecified organism (principal); J69.0 Pneumonitis due to inhalation of food and vomit; J96.21 Acute and chronic respiratory failure with hypoxia; N39.0 Urinary tract infection, site not specified; R65.20 Severe sepsis without septic shock; E83.51 Hypocalcemia; I95.9 Hypotension, unspecified; F03.90 Unspecified dementia, unspecified severity, without behavioral disturbance, psychotic disturbance, mood disturbance, and anxiety; G40.909 Epilepsy, unspecified, not intractable, without status epilepticus; E87.6 Hypokalemia; Z66 Do not resuscitate; E03.9 Hypothyroidism, unspecified; K21.9 Gastro-esophageal reflux disease without esophagitis; F31.9 Bipolar disorder, unspecified; Z51.5 Encounter for palliative care; B96.20 Unspecified Escherichia coli [E. coli] as the cause of diseases classified elsewhere; Q90.9 Down syndrome, unspecified; Z79.899 Other long term (current) drug therapy
CPT/HCPCS: 36415; 70450; 71045; 80048; 80053; 80177; 81003; 81015; 83605; 83735; 84439; 84443; 84484; 85025; 85027; 85610; 85730; 87040; 87077; 87086; 87186; 87641; 93005; 95816; 95819; 96365; 96367; 99284; A9270-GY; J0610; J0692; J0744; J2060; J2543; J3370; J3480